=== PATIENT | male | born 1995 | race Caucasian/White ===

== ENCOUNTER 2018-05-22 18:37 | Inpatient (IN) ==
[2018-05-22] MEDS ORDERED: Sod Chloride 0.9% Inj 1,000 ML IV.SIG ONE (19:28)
--- NOTE | 2018-05-22 19:35 | ED ---
HPI General Chief Complaint: Psychiatric Symptoms Stated Complaint: Pysch Eval/EPD Time Seen by Provider: 05/22/18 19:11 Source: patient Mode of arrival: ambulatory Limitations: no limitations History of Present Illness HPI Narrative: 23-year-old male presents the ED under Zaragoza act for psychiatric evaluation. According to the Zaragoza act the patient's mother says that he is suicidal. On presentation the patient denies suicidal or homicidal ideation. He denies psychiatric history. He states that he has been using IV Dilaudid for about a year. He estimates that he uses 4 mg at least 4 or 5 times a week. Last use 2 hours before arrival. He denies other illicit drug use or alcohol use. He is a cigarette smoker. He denies any somatic complaints. He states that he wants to go to rehab. He states that he tried several days to get into [facility] but was unable to procure a bed. Related Data Home Medications Medication Instructions Recorded Confirmed No Known Home Medications 05/22/18 05/22/18 Allergies Allergy/AdvReac Type Severity Reaction Status Date / Time No Known Allergies Uncoded 08/25/08 10:37 Review of Systems ROS: all other systems reviewed are negative [facility] Medical History Medical History Patient denies medical problems (Acute) Surgical History Surgical History No history of previous surgery (Acute) Social History Social History Substance History: Active Abuse Second Hand Smoke Exposure: No Smoking Status: Current every day smoker Tobacco Type: Cigarettes How Often Do You Have a Drink Containing Alcohol: Monthly or less Recent Travel in [email or web address] within the Last 8 Weeks: No Recent Out of Country Travel within the Last 8 Weeks: No Substance Abuse Detail Opiates: Substance Use Status: Active Route Used Substance Abuse: Intravenously Substance Frequency: 4mg-8mg 4-5x per week Reason for Use: Get High Immunization History Tetanus Immunization: Unsure Exam Narrative Exam Narrative: GENERAL: Well-nourished, well-developed, nontoxic-appearing white male no acute distress. SKIN: Focused skin assessment warm/dry. HEAD: Atraumatic. Normocephalic. EYES: Pupils equal and round. No scleral icterus. No injection or drainage. ENT: No nasal bleeding or discharge. Mucous membranes pink and moist. NECK: Trachea midline. No JVD. CARDIOVASCULAR: Regular rate and rhythm. No murmur appreciated. RESPIRATORY: No accessory muscle use. Clear to auscultation. Breath sounds equal bilaterally. GASTROINTESTINAL: Abdomen soft, non-tender, nondistended. Hepatic and splenic margins not palpable. MUSCULOSKELETAL: No obvious deformities. No clubbing. No cyanosis. No edema. NEUROLOGICAL: Awake and alert. No obvious cranial nerve deficits. Motor grossly within normal limits. Normal speech. PSYCHIATRIC: Appropriate mood and affect; insight and judgment normal. Course Initial Documented Vital Signs Temperature 100.6 F H 05/22/18 19:09 Pulse Rate 132 H 05/22/18 19:09 Respiratory Rate 14 05/22/18 19:09 Blood Pressure 159/82 H 05/22/18 19:09 Pulse Oximetry 99 05/22/18 19:09 Last Documented Vital Signs Temperature 98.8 F 05/22/18 21:03 Pulse Rate 125 H 05/22/18 21:03 Respiratory Rate 18 05/22/18 21:03 Blood Pressure 133/70 05/22/18 21:03 Pulse Oximetry 97 05/22/18 21:03 Medical Decision Making MARIPOSA Attestation MARIPOSA supervised visit: Yes Attestation: I, Dr. Cedeño, have reviewed the advance practice practitioner's documentation and am in agreement, met with the patient face to face, made the diagnosis, and the medical decision making was done by me. *My assessment and Findings: Patient is a 23-year-old male who was placed under Zaragoza act as his mother reports that he had suicidal ideation. Patient is a drug addict, reports that he uses IV drugs, last use was a few hours prior to arrival to the emergency room. His mother called miter operator and said he was suicidal to put him under Zaragoza act to get him help for his drug addiction. Patient currently presents tachycardic with a heart rate in the 132, temp of 100.6, wbc 19.4 with left shift. Patient is bacteremic - he has been pancultured and lactate obtained. He will be given IV zosyn and vancomycin. Plan to admit him to the hospital. On physical exam - patient with no heart murmurs appreciated - no back pain. Patient with no complaints. Case reviewed with FP resident - will admit to Dr. Mccabe MDM Narrative Medical Screen Exam Complete: Yes Emergency Medical Condition: Yes Differential Diagnosis Differential Diagnosis: Adjustment disorder versus anxiety versus depression versus mood disorder versus substance-induced mood disorder versus other Lab Data Result diagrams: 05/22/18 19:30 05/22/18 19:30 Lab Results 05/22/18 05/22/18 Range/Units 19:30 19:30 WBC 19.4 H (4.0-11.0) th/mm3 RBC 4.45 L (4.50-5.90) mil/mm3 Hgb 13.8 (13.0-17.0) gm/dL Hct 40.9 (39.0-51.0) % MCV 91.8 (80.0-100.0) fL MCH 30.9 (27.0-34.0) pg MCHC 33.7 (32.0-36.0) % RDW 13.6 (11.6-17.2) % Plt Count 308 (150-450) th/mm3 MPV 7.2 (7.0-11.0) fL Neut % (Auto) 85.1 H (16.0-70.0) % Lymph % (Auto) 8.4 L (9.0-44.0) % Quay % (Auto) 6.1 (0.0-8.0) % Eos % (Auto) 0.2 (0.0-4.0) % Baso % (Auto) 0.2 (0.0-2.0) % Neut # (Auto) 16.5 H (1.8-7.7) th/mm3 Lymph # (Auto) 1.6 (1.0-4.8) th/mm3 Quay # (Auto) 1.2 H (0.0-0.9) th/mm3 Eos # (Auto) 0.0 (0.0-0.4) th/mm3 Baso # (Auto) 0.0 (0.0-0.2) th/mm3 WBC Differential . Differential Comment Auto diff final Sodium 137 (136-145) meq/L Potassium 3.5 (3.5-5.1) meq/L Chloride 104 (98-107) meq/L Carbon Dioxide 25.8 (21.0-32.0) meq/L Anion Gap 7 (5-15) meq/L BUN 12 (7-18) mg/dL Creatinine 1.30 (0.60-1.30) mg/dL Estimated GFR 70 L (>89) mL/min Random Glucose 129 H (74-106) mg/dL Calcium 9.1 (8.5-10.1) mg/dL Magnesium 2.0 (1.5-2.5) mg/dL Total Bilirubin 0.5 (0.2-1.0) mg/dL AST 15 (15-37) U/L ALT 15 (12-78) U/L Alkaline Phosphatase 70 (45-117) U/L Total Protein 8.9 H (6.4-8.2) g/dL Albumin 4.1 (3.4-5.0) g/dL TSH 1.170 (0.358-3.740) uIU/mL Serum Alcohol Less than 3 (0-5) mg/dL Discharge Plan Discharge Disposition Patient Disposition: 30 Still Patient Discharge Condition Condition: Fair Discharge Details Diagnosis: Bacteremia Physicians Team ED Provider: Lisa Cedeño ED Midlevel Provider: Mariela Camacho Primary Care Provider: Primary Care Gi Arzate Rxs /Orders / Referrals /Forms Prescriptions: No Action No Known Home Medications RF: 0 Status ED Status: Pending Admission
[2018-05-22 19:51] LABS: Baso % (Auto) 0.2 % (0.0-2.0); Eos % (Auto) 0.2 % (0.0-4.0); Hematocrit 40.9 % (39.0-51.0); Hemoglobin 13.8 gm/dL (13.0-17.0); Lymph # (Auto) 1.6 th/mm3 (1.0-4.8); Lymph % (Auto) 8.4 % (9.0-44.0); Mean Corpuscular HGB Conc 33.7 % (32.0-36.0); Mean Corpuscular Hemoglobin 30.9 pg (27.0-34.0); Mean Corpuscular Volume 91.8 fL (80.0-100.0); Mean Platelet Volume 7.2 fL (7.0-11.0); Mono # (Auto) 1.2 th/mm3 (0.0-0.9); Mono % (Auto) 6.1 % (0.0-8.0); Neut # (Auto) 16.5 th/mm3 (1.8-7.7); Neut % (Auto) 85.1 % (16.0-70.0); Platelet Count 308 th/mm3 (150-450); Red Blood Count 4.45 mil/mm3 (4.50-5.90); Red Cell Distribution Width 13.6 % (11.6-17.2); White Blood Count 19.4 th/mm3 (4.0-11.0)
[2018-05-22 19:58] LABS: Alanine Aminotransferase 15 U/L (12-78); Albumin 4.1 g/dL (3.4-5.0); Anion Gap 7 meq/L (5-15); Aspartate Aminotransferase 15 U/L (15-37); Blood Urea Nitrogen 12 mg/dL (7-18); Calcium 9.1 mg/dL (8.5-10.1); Carbon Dioxide 25.8 meq/L (21.0-32.0); Chloride 104 meq/L (98-107); Glomerular Filtration Rate 70 mL/min (>89); Glucose,Random 129 mg/dL (74-106); Potassium 3.5 meq/L (3.5-5.1); Sodium 137 meq/L (136-145)
[2018-05-22 20:08] LABS: Alkaline Phosphatase 70 U/L (45-117); Total Protein 8.9 g/dL (6.4-8.2)
[2018-05-22] MEDS ORDERED: Acetaminophen 325 MG Tablet PO ONE (21:13)
[2018-05-22] MEDS ORDERED: Piperacil/Tazo 4.5 GM Premix 4.5 GM/100 ML BAG IV.SIG ONE (21:14)
[2018-05-22] MEDS: Sod Chloride 0.9% Inj 1,000 ML IV.SIG SCH (21:24)
--- NOTE | 2018-05-22 21:54 | P.HPFP ---
History of Present Illness Primary Care Physician: No Primary Care Physician <Anthony Mccabe - 05/24/18 14:26> No Primary Care Physician <Panda Foster - 05/22/18 21:54> History of Present Illness: Patient is a 23-year-old male with past history of opiate addiction who presents today after being Nik acted. The patient reports that he is a chronic opioid addict and tonight his mother attempted to get him help with his opioid addiction by having him Nik acted and sent to the hospital. She reported that he was suicidal at the time as per the ER notes. He states that he has been using IV Dilaudid for approximately 1 year. Over that time he has been able to transition over to Suboxone twice for a couple of months at a time. He typically uses approximately 4-8 mg of Dilaudid per day. He typically uses 5 days/week. He notes that he typically has withdrawal symptoms at approximately 24 hours after his last use. His withdrawal symptoms will include nausea, vomiting, diarrhea, anxiety, shaking. He reports he last used today. He states he typically uses clean needles and will wipe off the needles before using them, however does not sanitize his arm with antiseptic prior to injections. Currently he denies nausea, vomiting, fever, chills, abdominal pain, chest pain, shortness of breath, lightheadedness , dizziness, changes in vision, new lesions on his hands or fingers, painful nodules, new skin lesions other than track aldana on his arms. Patient is currently interested in obtaining help for his opioid addiction. Medical: none Surgery: none Family: Mother: Father: Social EtOH: occasional Tobacco: 1PPd for 3 years Drugs: Dilaudid, Marijuana <Panda Foster - 05/22/18 23:10> - Diagnosis (1) Sepsis (2) Opioid withdrawal (3) Nicotine addiction (4) Nutrition, metabolism, and development symptoms <Pnada Foster - 05/22/18 22:30> (1) Suspected endocarditis (2) Opioid withdrawal (3) Nicotine addiction (4) Nutrition, metabolism, and development symptoms <Anthony Mccabe - 05/24/18 14:26> Inpatient Certification: I certify that the inpatient services were ordered in accordance with Medicare regulations governing the order. This includes certification that hospital inpatient services are reasonable and necessary and in the case of services not specified as inpatient-only under 42 CFR 419.22(n), that they are appropriately provided as inpatient services in accordance to with the 2-midnight benchmark under 43 CFR 412.3(e) <Anthony Mccabe - 05/24/18 14:26> I certify that the inpatient services were ordered in accordance with Medicare regulations governing the order. This includes certification that hospital inpatient services are reasonable and necessary and in the case of services not specified as inpatient-only under 42 CFR 419.22(n), that they are appropriately provided as inpatient services in accordance to with the 2-midnight benchmark under 43 CFR 412.3(e) <Panda Foster - 05/22/18 21:54> Review of Systems All other systems reviewed negative except as stated in HPI <Panda Foster - 05/22/18 23:10> PMFSH - History History Provided By: Patient <Panda Foster - 05/22/18 21:54> - Medical History Medical History: Medical History (Last Reviewed 05/22/18 @ 19:34 by SOLOMON Apodaca) Patient denies medical problems <Anthony Mccabe - 05/24/18 14:23> Medical History (Last Reviewed 05/22/18 @ 19:34 by SOLOMON Apodaca) Patient denies medical problems <Panda Foster - 05/22/18 21:54> - Surgical History Surgical History: Surgical History (Last Reviewed 05/22/18 @ 19:34 by SOLOMON Apodaca) No history of previous surgery <Anthony Mccabe - 05/24/18 14:23> Surgical History (Last Reviewed 05/22/18 @ 19:34 by SOLOMON Apodaca) No history of previous surgery <Panda Foster - 05/22/18 21:54> - Tobacco History Second Hand Smoke Exposure: No <Panda Foster - 05/22/18 21:54> Tobacco Use In Past 30 Days: Yes <Panda Foster 05/22/18 21:54> Smoking Status: Current every day smoker <Panda Foster - 05/22/18 21:54> Tobacco Type: Cigarettes <Panda Foster - 05/22/18 21:54> - Alcohol History How Often Do You Have a Drink Containing Alcohol: Monthly or less <Panda Foster 05/22/18 21:54> - Substance Use History Substance History: Active Abuse <CherylnanyLeif - 05/22/18 21:54> - Substance Use Type Opiates Status: Active <CherylPanda ayon - 05/22/18 21:54> Route Used: Intravenously <CherylnanyLeif - 05/22/18 21:54> Frequency: 4mg-8mg 4-5x per week <Panda Foster - 05/22/18 21:54> Reason for Use: Get High <CherylPanda ayon - 05/22/18 21:54> - Travel History Recent Travel in the [place] Within the Last 8 Weeks: No <Panda Foster - 05/22 21:54> Recent Travel Out of the Country Within the Last 8 Weeks: No <Panda Foster - 05/22/18 21:54> - Immunization History Tetanus Immunization: Unsure <Panda Foster - 05/22/18 21:54> Medications and Allergies Allergies Allergy/AdvReac Type Severity Reaction Status Date / Time No Known Allergies Allergy Verified 05/22/18 22:12 <Anthony Mccabe - 05/24/18 14:26> Home Medications Medication Instructions Recorded Confirmed Type No Known Home Medications 05/22/18 05/22/18 History <Anthony Mccabe - 05/24/18 14:26> Active Medications: Active Medications Acetaminophen (Tylenol) 650 mg PO Q4H PRN PRN Reason: Temp > 100.4 Clonidine HCl (Catapres) 0.1 mg PO Q6H PRN PRN Reason: Opioid Withdrawal Symptoms Last Admin: 05/24/18 13:24 Dose: 0.1 mg Gabapentin (Neurontin) 300 mg PO TID GIL Last Admin: 05/24/18 13:06 Dose: 300 mg Hydroxyzine HCl (Atarax) 50 mg PO Q6H PRN PRN Reason: ANXIETY AND/OR AGITATION Last Admin: 05/24/18 13:24 Dose: 50 mg Piperacillin/Tazobactam/Dextrose (Zosyn 4.5 Gm Premix) 4.5 gm in 100 mls @ 200 mls/hr IV.SIG Q6H GIL Last Infusion: 05/24/18 08:29 Dose: Infused Vancomycin HCl 1,500 mg/ (Sodium Chloride) 515 mls @ 250 mls/hr IV.SIG Q12H GIL Stop: 05/24/18 20:00 Last Admin: 05/24/18 13:06 Dose: 250 mls/hr Vancomycin HCl 1,750 mg/ (Sodium Chloride) 517.5 mls @ 250 mls/hr IV.SIG Q12H GIL Loperamide HCl (Imodium) 2 mg PO UNSCH PRN PRN Reason: DIARRHEA Miscellaneous Information ([facility] Ordered Lab Info) 0 each OTHER ONCE ONE Stop: 05/26/18 12:46 Nicotine (Habitrol 14 Mg Patch.24 Hr) 1 patch T-DERMAL DAILY ON LICENSE OF [facility] Last Admin: 05/24/18 08:00 Dose: 1 patch Nicotine Polacrilex (Nicotine Gum) 4 mg CHEW Q2H PRN PRN Reason: AGITATION Last Admin: 05/23/18 21:21 Dose: 4 mg Ondansetron HCl (Zofran Inj) 4 mg IV.PUSH Q6H PRN PRN Reason: NAUSEA OR VOMITING Patch Removal (Remove Old Patch) 1 each T-DERMAL DAILY ON LICENSE OF [facility] Last Admin: 05/24/18 08:00 Dose: 1 each Pharmacy Profile Note (Vancomycin Consult Pharmacy) 1 each OTHER UNSCH PRN PRN Reason: Pharmacy to dose Sodium Chloride (Ns Flush) 2 ml IV.FLUSH BID ON LICENSE OF [facility] Last Admin: 05/24/18 08:00 Dose: 2 ml Sodium Chloride (Ns Flush) 2 ml IV.FLUSH PRN PRN PRN Reason: FLUSH AFTER USING IV ACCESS <Anthony Mccabe - 05/24/18 14:26> Active Medications Sodium Chloride (Ns Inj) 1,000 mls @ 2,000 mls/hr IV.SIG Q30M ON LICENSE OF [facility] Stop: 05/22/18 22:14 Last Admin: 05/22/18 21:24 Dose: 2,000 mls/hr Vancomycin HCl 1,000 mg/ (Sodium Chloride) 250 mls @ 250 mls/hr IV.SIG GROCERY SHOPPER ON LICENSE OF [facility] Nicotine Polacrilex (Nicotine Gum) 4 mg CHEW Q2H PRN PRN Reason: AGITATION Last Admin: 05/22/18 19:56 Dose: 4 mg <Panda Foster - 05/22/18 21:54> Exam Vital signs: Vital Signs 05/23/18 16:00 05/23/18 20:00 05/24/18 00:00 Temperature 99.1 F 98.9 F 97.8 F Pulse Rate 88 79 82 Respiratory Rate 20 18 18 Blood Pressure 144/71 H 129/69 124/67 Pulse Oximetry 98 98 05/24/18 04:00 05/24/18 07:00 05/24/18 07:43 Temperature 97.4 F L Pulse Rate 82 Respiratory Rate 18 12 12 Blood Pressure 127/63 Pulse Oximetry 127 H 05/24/18 07:48 05/24/18 08:00 05/24/18 11:41 Temperature 98.2 F 99.6 F Pulse Rate 65 61 70 Respiratory Rate 16 20 Blood Pressure 130/70 143/81 H Pulse Oximetry 99 98 Intake & Output 05/23/18 05/24/18 05/24/18 18:59 06:59 18:59 Intake Total 1095 / 1095 815 / 815 100 / 100 Balance 1095 / 1095 815 / 815 100 / 100 Weight 1525 kg 84.1 kg Intake: IV 615 / 615 815 / 815 100 / 100 Zosyn 4.5 GM Premix 4.5 gm In 100 / 100 300 / 300 100 / 100 100 ml @ 200 mls/hr IV.SIG Q6H GIL Rx#:[id number] Vancomycin Inj 1,500 MG In NS 515 / 515 515 / 515 Inj 500 ML @ 250 mls/hr IV.SIG Q12H GIL Rx#:[id number] Oral 480 / 480 Other: # Voids 1 3 Date of Last Bowel Movement 05/22/18 05/22/18 05/24/18 # Bowel Movements 1 <Anthony Mccabe - 05/24/18 14:26> Vital Signs 05/22/18 19:09 05/22/18 21:03 Temperature 100.6 F H 98.8 F Pulse Rate 132 H 125 H Respiratory Rate 14 18 Blood Pressure 159/82 H 133/70 Pulse Oximetry 99 97 Intake & Output 05/22/18 05/22/18 05/23/18 06:59 18:59 06:59 Intake Total 1000 / 1000 Balance 1000 / 1000 Weight 90.718 kg Intake: IV 1000 / 1000 NS Inj 1,000 ML @ Wide Open IV. 1000 / 1000 SIG BOLUS ONE Rx#:[id number] <Panda Foster - 05/22/18 21:54> Narrative: GENERAL: Laying in bed, no acute distress SKIN: Warm and dry. No Osler's nodes, Janeway lesions, splinter hemorrhages. HEAD: Atraumatic. Normocephalic. EYES: Pupils equal and round. No scleral icterus. No injection or drainage. ENT: No nasal bleeding or discharge. Mucous membranes pink and moist. NECK: Trachea midline. No JVD. CARDIOVASCULAR: Regular rate and rhythm. No murmurs/gallops/rubs. RESPIRATORY: No accessory muscle use. Clear to auscultation. Breath sounds equal bilaterally. GASTROINTESTINAL: Abdomen soft, non-tender, nondistended. Hepatic and splenic margins not palpable. MUSCULOSKELETAL: Extremities without clubbing, cyanosis, or edema. No obvious deformities. NEUROLOGICAL: Awake and alert. No obvious cranial nerve deficits. Motor grossly within normal limits. Five out of 5 muscle strength in the arms and legs. Normal speech. PSYCHIATRIC: Appropriate mood and affect; insight and judgment normal. Patient currently denies SI/HI. Patient denies AV hallucinations. <Panda Foster A - 05/22/18 23:10> Results - Labs Result diagrams: 05/24/18 07:01 05/24/18 13:12 <Anthony Mccabe - 05/24/18 14:26> Abnormal lab results 05/24/18 05/24/18 Range/Units 07:01 13:12 RBC 4.15 L (4.50-5.90) mil/mm3 Hct 38.0 L (39.0-51.0) % [place] % (Auto) 11.8 H (0.0-8.0) % [place] # (Auto) 1.2 H (0.0-0.9) th/mm3 Chloride 113 H (98-107) meq/L Estimated GFR 78 L (>89) mL/min C-Reactive Protein 1.30 H (0.00-0.30) mg/dL Vancomycin Trough 12.4 H (5.0-10.0) mcg/mL Short CBC 05/24/18 Range/Units 07:01 WBC 9.9 (4.0-11.0) th/mm3 Hgb 13.0 (13.0-17.0) gm/dL Hct 38.0 L (39.0-51.0) % Plt Count 289 (150-450) th/mm3 [facility] 05/24/18 13:12 Sodium 142 Potassium 3.5 Chloride 113 H Carbon Dioxide 22.5 BUN 8 Creatinine 1.18 Calcium 9.0 D <Anthony Mccabe - 05/24/18 14:26> Abnormal lab results 05/22/18 05/22/18 Range/Units 19:30 19:30 WBC 19.4 H (4.0-11.0) th/mm3 RBC 4.45 L (4.50-5.90) mil/mm3 Neut % (Auto) 85.1 H (16.0-70.0) % Lymph % (Auto) 8.4 L (9.0-44.0) % Neut # (Auto) 16.5 H (1.8-7.7) th/mm3 [place] # (Auto) 1.2 H (0.0-0.9) th/mm3 Estimated GFR 70 L (>89) mL/min Random Glucose 129 H (74-106) mg/dL Total Protein 8.9 H (6.4-8.2) g/dL Short CBC 05/22/18 Range/Units 19:30 WBC 19.4 H (4.0-11.0) th/mm3 Hgb 13.8 (13.0-17.0) gm/dL Hct 40.9 (39.0-51.0) % Plt Count 308 (150-450) th/mm3 [facility] 05/22/18 19:30 Sodium 137 Potassium 3.5 Chloride 104 Carbon Dioxide 25.8 BUN 12 Creatinine 1.30 Calcium 9.1 Liver Function 05/22/18 Range/Units 19:30 Total Bilirubin 0.5 (0.2-1.0) mg/dL AST 15 (15-37) U/L ALT 15 (12-78) U/L Alkaline Phosphatase 70 (45-117) U/L Albumin 4.1 (3.4-5.0) g/dL <Panda Foster - 05/22/18 21:54> Aster VTE Risk Assessment Aster VTE Risk Assessment: No/Low Risk (score <= 1) <Panda Foster - 07/09 23:10> Aster Risk Assessment Model: Point Value = 1 Point Value = 2 Point Value = 3 Point Value = 5 Age 41-60 Minor surgery BMI > 25 kg/m2 Swollen legs Varicose veins or History of unexplained or recurrent spontaneous Oral contraceptives or hormone replacement Sepsis (< 1 month) Serious lung disease, including pneumonia (< 1 month) Abnormal pulmonary function Acute myocardial infarction Congestive heart failure (< 1 month) History of inflammatory bowel disease Medical patient at bed rest Age 61-74 Arthroscopic surgery Major open surgery (> 45 min) Laparoscopic surgery (> 45 min) Malignancy Confined to bed (> 72 hours) Immobilizing plaster cast Central venous access Age >= 75 History of VTE Family history of VTE Factor V Leiden Prothrombin [id number] Lupus anticoagulant Anticardiolipin antibodies Elevated serum homocysteine Heparin-induced thrombocytopenia Other congenital or acquired thrombophilia Stroke (< 1 month) Elective arthroplasty Hip, pelvis, or leg fracture Acute spinal cord injury (< 1 month) <Anthony Mccabe - 05/24/18 14:26> Point Value = 1 Point Value = 2 Point Value = 3 Point Value = 5 Age 41-60 Minor surgery BMI > 25 kg/m2 Swollen legs Varicose veins or History of unexplained or recurrent spontaneous Oral contraceptives or hormone replacement Sepsis (< 1 month) Serious lung disease, including pneumonia (< 1 month) Abnormal pulmonary function Acute myocardial infarction Congestive heart failure (< 1 month) History of inflammatory bowel disease Medical patient at bed rest Age 61-74 Arthroscopic surgery Major open surgery (> 45 min) Laparoscopic surgery (> 45 min) Malignancy Confined to bed (> 72 hours) Immobilizing plaster cast Central venous access Age >= 75 History of VTE Family history of VTE Factor V Leiden Prothrombin [id number] Lupus anticoagulant Anticardiolipin antibodies Elevated serum homocysteine Heparin-induced thrombocytopenia Other congenital or acquired thrombophilia Stroke (< 1 month) Elective arthroplasty Hip, pelvis, or leg fracture Acute spinal cord injury (< 1 month) <Panda Foster - 05/22/18 21:54> Prophylaxis Regimen: Total Risk Factor Score Risk Level Prophylaxis Regimen 0-1 Low Early ambulation 2 Moderate Order ONE of the following: *Sequential Compression Device (SCD) *Heparin 5000 units SQ BID 3-4 Higher Order ONE of the following medications: *Heparin 5000 units SQ TID *Enoxaparin/Lovenox 40 mg SQ daily (WT < 150 kg, CrCl > 30 mL/min) *Enoxaparin/Lovenox 30 mg SQ daily (WT < 150 kg, CrCl > 10-29 mL/min) *Enoxaparin/Lovenox 30 mg SQ BID (WT < 150 kg, CrCl > 30 mL/min) AND/OR *Sequential Compression Device (SCD) 5 or more Highest Order ONE of the following medications: *Heparin 5000 units SQ TID (Preferred with Epidurals) *Enoxaparin/Lovenox 40 mg SQ daily (WT < 150 kg, CrCl > 30 mL/min) *Enoxaparin/Lovenox 30 mg SQ daily (WT < 150 kg, CrCl > 10-29 mL/min) *Enoxaparin/Lovenox 30 mg SQ BID (WT < 150 kg, CrCl > 30 mL/min) AND *Sequential Compression Device (SCD) <Anthony Mccabe - 05/24/18 14:26> Total Risk Factor Score Risk Level Prophylaxis Regimen 0-1 Low Early ambulation 2 Moderate Order ONE of the following: *Sequential Compression Device (SCD) *Heparin 5000 units SQ BID 3-4 Higher Order ONE of the following medications: *Heparin 5000 units SQ TID *Enoxaparin/Lovenox 40 mg SQ daily (WT < 150 kg, CrCl > 30 mL/min) *Enoxaparin/Lovenox 30 mg SQ daily (WT < 150 kg, CrCl > 10-29 mL/min) *Enoxaparin/Lovenox 30 mg SQ BID (WT < 150 kg, CrCl > 30 mL/min) AND/OR *Sequential Compression Device (SCD) 5 or more Highest Order ONE of the following medications: *Heparin 5000 units SQ TID (Preferred with Epidurals) *Enoxaparin/Lovenox 40 mg SQ daily (WT < 150 kg, CrCl > 30 mL/min) *Enoxaparin/Lovenox 30 mg SQ daily (WT < 150 kg, CrCl > 10-29 mL/min) *Enoxaparin/Lovenox 30 mg SQ BID (WT < 150 kg, CrCl > 30 mL/min) AND *Sequential Compression Device (SCD) <Panda Foster - 05/22/18 21:54> Assessment and Plan - Assessment (1) Sepsis Code(s): A41.9 - Sepsis, unspecified organism Status: Acute Plan: Patient with chronic and recent IV drug use. Meets criteria for sepsis. Currently with 2 minor Gaviria criteria, IVDU and fever. Need to evaluate further for bacterial endocarditis. -Follow-up blood cultures -Zosyn 4.5 g every 6 hours -Vancomycin 1.5 g every 12 hours, titrate as needed for appropriate concentration -Follow-up with OSWALD (2) Opioid withdrawal Code(s): F11.23 - Opioid dependence with withdrawal Status: Acute Plan: Chronic IV Dilaudid user, typically uses 4-8 mg/day. -Clonidine 0.1 mg every 6 hours as needed for opioid withdrawal symptoms -Hydroxyzine 50 mg every 6 hours as needed for anxiety related to opioid withdrawal (3) Nicotine addiction Code(s): F17.200 - Nicotine dependence, unspecified, uncomplicated Status: Acute Plan: Nicotine addiction. -Nicotine patch (4) Nutrition, metabolism, and development symptoms Code(s): R63.8 - Other symptoms and signs concerning food and fluid intake Status: Acute Plan: Diet: Regular Electrolytes: Monitor and replete as needed <Panda Foster - 05/22/18 22:30> (1) Suspected endocarditis Code(s): R09.89 - Other specified symptoms and signs involving the circulatory and respiratory systems Status: Acute (2) Opioid withdrawal Code(s): F11.23 - Opioid dependence with withdrawal Status: Acute (3) Nicotine addiction Code(s): F17.200 - Nicotine dependence, unspecified, uncomplicated Status: Acute (4) Nutrition, metabolism, and development symptoms Code(s): R63.8 - Other symptoms and signs concerning food and fluid intake Status: Acute <Anthony Mccabe - 05/24/18 14:26> - Attending Attestation See the residents documentation for details. I saw and evaluated the patient regarding the kang portions of this evaluation and agree with the residents findings and plans as written. Parts of this note were created using [employer] voice recognition software program. While efforts were made to correct any mistakes made by this software, some mistakes, errors, and omissions may remain in the final note that were not caught when the note was originally created. Plan of care was discussed and agreed upon with the patient as specifically documented in the above note. An opportunity to ask questions with explanation was provided. Patient voiced understanding on all information reviewed and discussed. <Anthony Mccabe - 05/24/18 14:23>
[2018-05-22] MEDS ORDERED: Vancomycin Inj 1,000 MG in Sodium Chlor 0.9% Inj 250 ML IV.SIG SCH (22:00)
[2018-05-22] MEDS ORDERED: Acetaminophen 325 MG Tablet PO PRN (22:09)
[2018-05-22 22:11] LABS: Amphetamine Screen,Urine Neg (Neg); Barbiturate Screen,Urine Neg (Neg); Cannabinoid Screen,Urine Neg (Neg); Cocaine Screen,Urine Pos (Neg)
[2018-05-22 22:48] LABS: Opiate Screen,Urine Pos (Neg)
[2018-05-22] MEDS ORDERED: Vancomycin Consult Pharmacy OTHER PRN (23:09)
[2018-05-22] MEDS ORDERED: Vancomycin Inj 1,000 MG in Sodium Chlor 0.9% Inj 250 ML IV.SIG ONE (23:30)
[2018-05-23 01:24] LABS: Baso % (Auto) 0.3 % (0.0-2.0); Eos # (Auto) 0.1 th/mm3 (0.0-0.4); Eos % (Auto) 1.2 % (0.0-4.0); Hematocrit 36.4 % (39.0-51.0); Hemoglobin 12.4 gm/dL (13.0-17.0); Lymph # (Auto) 2.9 th/mm3 (1.0-4.8); Lymph % (Auto) 27.3 % (9.0-44.0); Mean Corpuscular HGB Conc 34.1 % (32.0-36.0); Mono % (Auto) 9.7 % (0.0-8.0); Neut # (Auto) 6.4 th/mm3 (1.8-7.7); Neut % (Auto) 61.5 % (16.0-70.0); Platelet Count 244 th/mm3 (150-450); Red Cell Distribution Width 13.5 % (11.6-17.2); White Blood Count 10.5 th/mm3 (4.0-11.0)
[2018-05-23] MEDS: Sod Chloride 0.9% Inj 1,000 ML IV.SIG SCH (01:28)
[2018-05-23 02:01] LABS: Alanine Aminotransferase 13 U/L (12-78); Albumin 3.3 g/dL (3.4-5.0); Alkaline Phosphatase 56 U/L (45-117); Anion Gap 5 meq/L (5-15); Aspartate Aminotransferase 9 U/L (15-37); Blood Urea Nitrogen 11 mg/dL (7-18); Calcium 7.9 mg/dL (8.5-10.1); Carbon Dioxide 27.6 meq/L (21.0-32.0); Chloride 108 meq/L (98-107); Glomerular Filtration Rate Greater Than 89 mL/min (>89); Glucose,Random 101 mg/dL (74-106); Potassium 3.5 meq/L (3.5-5.1); Sodium 141 meq/L (136-145); Total Protein 7.2 g/dL (6.4-8.2)
[2018-05-23] MEDS: Piperacil/Tazo 4.5 GM Premix 4.5 GM/100 ML BAG IV.SIG SCH ×4 (03:05→21:21)
[2018-05-23] MEDS ORDERED: Loperamide 2 MG Capsule PO PRN (08:32)
[2018-05-23] MEDS ORDERED: Loperamide 2 MG Capsule PO ONE (08:32)
[2018-05-23] MEDS ORDERED: Vancomycin Inj 1,500 MG in Sodium Chlor 0.9% Inj 500 ML IV.SIG SCH (10:00)
--- NOTE | 2018-05-23 11:48 | P.PNFP ---
Subjective Interval history: Pt is doing okay this morning. He denies SI/HI and states that he was in the process of detoxing when he slipped and took some IV Dilaudid. he denies using any other drugs. No fever or chills, nausea, or vomiting at this time. <EkoAna María U - 05/23/18 11:54> Results - Labs Result diagrams: 05/24/18 07:01 05/24/18 13:12 <Anthony Mccabe - 05/24/18 14:50> Abnormal lab results 05/24/18 05/24/18 Range/Units 07:01 13:12 RBC 4.15 L (4.50-5.90) mil/mm3 Hct 38.0 L (39.0-51.0) % [place] % (Auto) 11.8 H (0.0-8.0) % [place] # (Auto) 1.2 H (0.0-0.9) th/mm3 Chloride 113 H (98-107) meq/L Estimated GFR 78 L (>89) mL/min C-Reactive Protein 1.30 H (0.00-0.30) mg/dL Vancomycin Trough 12.4 H (5.0-10.0) mcg/mL Short CBC 05/24/18 Range/Units 07:01 WBC 9.9 (4.0-11.0) th/mm3 Hgb 13.0 (13.0-17.0) gm/dL Hct 38.0 L (39.0-51.0) % Plt Count 289 (150-450) th/mm3 BMP 05/24/18 13:12 Sodium 142 Potassium 3.5 Chloride 113 H Carbon Dioxide 22.5 BUN 8 Creatinine 1.18 Calcium 9.0 D <Anthony Mccabe - 05/24/18 14:50> Abnormal lab results 05/22/18 05/22/18 05/22/18 Range/Units 19:30 19:30 19:30 WBC 19.4 H (4.0-11.0) th/mm3 RBC 4.45 L (4.50-5.90) mil/mm3 Hgb (13.0-17.0) gm/dL Hct (39.0-51.0) % Neut % (Auto) 85.1 H (16.0-70.0) % Lymph % (Auto) 8.4 L (9.0-44.0) % [place] % (Auto) (0.0-8.0) % Neut # (Auto) 16.5 H (1.8-7.7) th/mm3 [place] # (Auto) 1.2 H (0.0-0.9) th/mm3 Chloride (98-107) meq/L Estimated GFR 70 L (>89) mL/min Random Glucose 129 H (74-106) mg/dL Calcium (8.5-10.1) mg/dL AST (15-37) U/L Troponin I Less than 0.02 L (0.02-0.05) ng/mL Total Protein 8.9 H (6.4-8.2) g/dL Albumin (3.4-5.0) g/dL Urine Opiates Screen (Neg) Urine Cocaine Screen (Neg) 05/22/18 05/23/18 05/23/18 Range/Units 21:51 01:13 01:13 WBC (4.0-11.0) th/mm3 RBC 4.00 L (4.50-5.90) mil/mm3 Hgb 12.4 L (13.0-17.0) gm/dL Hct 36.4 L (39.0-51.0) % Neut % (Auto) (16.0-70.0) % Lymph % (Auto) (9.0-44.0) % [place] % (Auto) 9.7 H (0.0-8.0) % Neut # (Auto) (1.8-7.7) th/mm3 [place] # (Auto) 1.0 H (0.0-0.9) th/mm3 Chloride 108 H (98-107) meq/L Estimated GFR (>89) mL/min Random Glucose (74-106) mg/dL Calcium 7.9 L D (8.5-10.1) mg/dL AST 9 L (15-37) U/L Troponin I (0.02-0.05) ng/mL Total Protein (6.4-8.2) g/dL Albumin 3.3 L D (3.4-5.0) g/dL Urine Opiates Screen Pos H (Neg) Urine Cocaine Screen Pos H (Neg) Short CBC 05/22/18 05/23/18 Range/Units 19:30 01:13 WBC 19.4 H 10.5 (4.0-11.0) th/mm3 Hgb 13.8 12.4 L (13.0-17.0) gm/dL Hct 40.9 36.4 L (39.0-51.0) % Plt Count 308 244 (150-450) th/mm3 BMP 05/22/18 05/23/18 19:30 01:13 Sodium 137 141 Potassium 3.5 3.5 Chloride 104 108 H Carbon Dioxide 25.8 27.6 BUN 12 11 Creatinine 1.30 1.01 Calcium 9.1 7.9 L D Cardiac Enzymes 05/22/18 Range/Units 19:30 Troponin I Less than 0.02 L (0.02-0.05) ng/mL Liver Function 05/22/18 05/23/18 Range/Units 19:30 01:13 Total Bilirubin 0.5 0.8 (0.2-1.0) mg/dL AST 15 9 L (15-37) U/L ALT 15 13 (12-78) U/L Alkaline Phosphatase 70 56 (45-117) U/L Albumin 4.1 3.3 L D (3.4-5.0) g/dL <Eko,Ana María U - 05/23/18 11:48> Physical Exam Vital signs: Vital Signs 05/23/18 16:00 05/23/18 20:00 05/24/18 00:00 Temperature 99.1 F 98.9 F 97.8 F Pulse Rate 88 79 82 Respiratory Rate 20 18 18 Blood Pressure 144/71 H 129/69 124/67 Pulse Oximetry 98 98 05/24/18 04:00 05/24/18 07:00 05/24/18 07:43 Temperature 97.4 F L Pulse Rate 82 Respiratory Rate 18 12 12 Blood Pressure 127/63 Pulse Oximetry 127 H 05/24/18 07:48 05/24/18 08:00 05/24/18 11:41 Temperature 98.2 F 99.6 F Pulse Rate 65 61 70 Respiratory Rate 16 20 Blood Pressure 130/70 143/81 H Pulse Oximetry 99 98 Intake & Output 05/23/18 05/24/18 05/24/18 18:59 06:59 18:59 Intake Total 1095 / 1095 815 / 815 100 / 100 Balance 1095 / 1095 815 / 815 100 / 100 Weight 1525 kg 84.1 kg Intake: IV 615 / 615 815 / 815 100 / 100 Zosyn 4.5 GM Premix 4.5 gm In 100 / 100 300 / 300 100 / 100 100 ml @ 200 mls/hr IV.SIG Q6H [facility] Rx#:[id number] Vancomycin Inj 1,500 MG In NS 515 / 515 515 / 515 Inj 500 ML @ 250 mls/hr IV.SIG Q12H [facility] Rx#:[id number] Oral 480 / 480 Other: # Voids 1 3 Date of Last Bowel Movement 05/22/18 05/22/18 05/24/18 # Bowel Movements 1 <Anthony Mccabe - 05/24/18 14:50> Vital Signs 05/22/18 19:09 05/22/18 21:03 05/22/18 22:00 Temperature 100.6 F H 98.8 F Pulse Rate 132 H 125 H 120 H Respiratory Rate 14 18 16 Blood Pressure 159/82 H 133/70 122/77 Pulse Oximetry 99 97 100 05/23/18 00:00 05/23/18 04:00 05/23/18 07:50 Temperature 98.4 F 97.7 F 97.4 F L Pulse Rate 120 H 78 80 Respiratory Rate 20 20 15 Blood Pressure 135/84 123/60 116/61 Pulse Oximetry 100 100 100 Intake & Output 05/22/18 05/23/18 05/23/18 18:59 06:59 18:59 Intake Total 3940 / 3940 Balance 3940 / 3940 Weight 91.2 kg Intake: IV 3700 / 3700 Zosyn 4.5 GM Premix 4.5 gm In 200 / 200 100 ml @ 200 mls/hr IV.SIG Q6H [facility] Rx#:[id number] NS Inj 1,000 ML @ 2000 mls/hr 3000 / 3000 IV.SIG Q30M [facility] Rx#:[id number] Vancomycin Inj 1,000 MG In NS 500 / 500 Inj 250 ML @ 250 mls/hr IV.SIG ONCE ONE Rx#:[id number] Oral 240 / 240 Other: # Voids 1 <Ana María Puentes U - 05/23/18 11:48> Narrative: GENERAL: Laying in bed, no acute distress SKIN: Warm and dry. No Osler's nodes, Janeway lesions, splinter hemorrhages. HEAD: Atraumatic. Normocephalic. EYES: Pupils equal and round. No scleral icterus. No injection or drainage. ENT: No nasal bleeding or discharge. Mucous membranes pink and moist. CARDIOVASCULAR: Regular rate and rhythm. No murmurs/gallops/rubs. RESPIRATORY: No accessory muscle use. Clear to auscultation. Breath sounds equal bilaterally. GASTROINTESTINAL: Abdomen soft, non-tender, nondistended. Hepatic and splenic margins not palpable. MUSCULOSKELETAL: Extremities without clubbing, cyanosis, or edema. No obvious deformities. NEUROLOGICAL: Awake and alert. No obvious cranial nerve deficits. Motor grossly within normal limits. Normal speech. PSYCHIATRIC: Appropriate mood and affect; insight and judgment normal. Patient currently denies SI/HI. <Ana María Puentes - 05/23/18 11:55> Assessment and Plan - Assessment (1) Suspected endocarditis Code(s): R09.89 - Other specified symptoms and signs involving the circulatory and respiratory systems Status: Acute (2) Opioid withdrawal Code(s): F11.23 - Opioid dependence with withdrawal Status: Acute (3) Nicotine addiction Code(s): F17.200 - Nicotine dependence, unspecified, uncomplicated Status: Acute (4) Nutrition, metabolism, and development symptoms Code(s): R63.8 - Other symptoms and signs concerning food and fluid intake Status: Acute <MccabeAnthony - 05/24/18 14:50> (1) Suspected endocarditis Code(s): R09.89 - Other specified symptoms and signs involving the circulatory and respiratory systems Status: Acute Plan: Patient with chronic and recent IV drug use. Met criteria for sepsis on admission with 2 minor Gaviria criteria, IVDU and fever which requires further evaluation for bacterial endocarditis. -WBC elevated to 19.4 on admission; down to 10.5 today -UDS positive for cocaine and opioids -Follow-up blood cultures -Zosyn 4.5 g every 6 hours -Vancomycin 1.5 g every 12 hours with pharmacy consult -Follow-up OSWALD (2) Opioid withdrawal Code(s): F11.23 - Opioid dependence with withdrawal Status: Acute Plan: Chronic IV Dilaudid user, typically uses 4-8 mg/day. -Patient is currently Zaragoza-acted but denies suicidal ideation -Pending psychiatry consultation -He may need inpatient rehab -Clonidine 0.1 mg every 6 hours as needed for opioid withdrawal symptoms -Hydroxyzine 50 mg every 6 hours as needed for anxiety related to opioid withdrawal -Loperamide 2mg unscheduled for diarrhea -Consider methadone for opioid withdrawal -HIV negative, hepatitis panel pending (3) Nicotine addiction Code(s): F17.200 - Nicotine dependence, unspecified, uncomplicated Status: Acute Plan: Nicotine addiction. -Nicotine patch (4) Nutrition, metabolism, and development symptoms Code(s): R63.8 - Other symptoms and signs concerning food and fluid intake Status: Acute Plan: Diet: Regular Electrolytes: Monitor and replete as needed <Ana María Puentes - 05/23/18 12:04> - Attending Attestation See the residents documentation for details. I saw and evaluated the patient regarding the kang portions of this evaluation and agree with the residents findings and plans as written. Parts of this note were created using [employer] voice recognition software program. While efforts were made to correct any mistakes made by this software, some mistakes, errors, and omissions may remain in the final note that were not caught when the note was originally created. Plan of care was discussed and agreed upon with the patient as specifically documented in the above note. An opportunity to ask questions with explanation was provided. Patient voiced understanding on all information reviewed and discussed. <Anthony Mccabe - 05/24/18 14:50>
[2018-05-23 12:29] LABS: Hepatitits B Surface Antigen Nonreactive (Nonreactive)
[2018-05-23 12:45] LABS: Hepatitis A IgM Antibody Nonreactive (Nonreactive)
--- NOTE | 2018-05-23 13:01 | ECG ---
Date Performed: 05/22/2018 Time Performed: 21:25:49 PTAGE: 23 years EKG: SINUS TACHYCARDIA ST ELEVATION CONSISTENT WITH INJURY, PERICARDITIS, OR EARLY REPOLARIZATIO N ABNORMAL ECG NO PREVIOUS TRACING DOCTOR: Donis Ventura Interpretating Date/Time 05/23/2018 12:58:42
[2018-05-23] MEDS: Vancomycin Inj 1,500 MG in Sodium Chlor 0.9% Inj 500 ML IV.SIG SCH (14:24)
--- NOTE | 2018-05-23 15:03 | P.CONPSY ---
Provisional Diagnosis Admission Date: May 22, 2018 21:38 History of Present Illness Service: psychiatry Consult date: 05/23/18 Reason for Consult: ROBERTA Primary Care Provider: No Primary Care Physician Chief Complaint: SI History of Present Illness: Patient is a 23-year-old male with a history of depressive disorder and severe opiate abuse. Patient interviewed with mother and girlfriend in the room. Patient is here Via Zaragoza act after daily use of IV Dilaudid. Per Zaragoza act patient made suicidal statements. Patient vehemently denies making statements or having suicidal ideation intent or plan. However per mother and girlfriend patient was under the influence and specifically said that he no longer wants to live and wishes he were . Patient is pleasant but evasive and guarded during the interview. Mother has started a act process and is following up on Thursday with the tank builder supervisor. At this time patient denies depressive symptoms, manic symptoms or psychotic symptoms. He does deny suicidal homicidal ideation intent or plan at this time. Patient is asking for Ativan for anxiety which is not appropriate, psychoeducation was done Past psych: Patient initially denied psychiatric history but mother says he was prescribed Lexapro when he was 19 and never complied with medications. Otherwise he denies a history of other psychotropic medications, outpatient or inpatient or suicide attempts. Past medical: Denies Past Social: Patient has been using IV Dilaudid heavily between 4 and 8 mg daily over the past year. He has been clean for as long as 8 weeks. There is no history of formal rehab programs. Patient says he started about a year and a half ago partying with friends using pain pills and benzodiazepines eventually progressed to IV Dilaudid. Patient says he would use other IV opiates if there were available such as heroin and morphine. He has a girlfriend. Not , no kids. Lives with his mom, was working in the restaurant industry. [facility] - History History Provided By: Patient - Medical History Medical History: Medical History (Last Reviewed 05/22/18 @ 19:34 by SOLOMON Apodaca) Patient denies medical problems - Surgical History Surgical History: Surgical History (Last Reviewed 05/22/18 @ 19:34 by SOLOMON Apodaca) No history of previous surgery - Tobacco History Second Hand Smoke Exposure: No Tobacco Use In Past 30 Days: Yes Smoking Status: Current every day smoker Tobacco Type: Cigarettes - Alcohol History How Often Do You Have a Drink Containing Alcohol: Monthly or less - Substance Use History Substance History: Active Abuse - Substance Use Type Opiates Status: Active Route Used: Intravenously Frequency: 4mg-8mg 4-5x per week Reason for Use: Get High - Travel History Recent Travel in the [place] Within the Last 8 Weeks: No Recent Travel Out of the Country Within the Last 8 Weeks: No - Immunization History Tetanus Immunization: >5 Years Hx Influenza Vaccine This Season: No Medications and Allergies Active Medications: Active Medications Acetaminophen (Tylenol) 650 mg PO Q4H PRN PRN Reason: Temp > 100.4 Clonidine HCl (Catapres) 0.1 mg PO Q6H PRN PRN Reason: Opioid Withdrawal Symptoms Hydroxyzine HCl (Atarax) 50 mg PO Q6H PRN PRN Reason: ANXIETY AND/OR AGITATION Last Admin: 05/23/18 12:55 Dose: 50 mg Piperacillin/Tazobactam/Dextrose (Zosyn 4.5 Gm Premix) 4.5 gm in 100 mls @ 200 mls/hr IV.SIG Q6H [facility] Last Infusion: 05/23/18 12:55 Dose: Infused Vancomycin HCl 1,500 mg/ (Sodium Chloride) 515 mls @ 250 mls/hr IV.SIG Q12H [facility] Last Admin: 05/23/18 14:24 Dose: 250 mls/hr Loperamide HCl (Imodium) 2 mg PO UNSCH PRN PRN Reason: DIARRHEA Miscellaneous Information ([facility] Ordered Lab Info) 0 each OTHER ONCE ONE Stop: 05/24/18 12:46 Nicotine (Habitrol 14 Mg Patch.24 Hr) 1 patch T-DERMAL DAILY [facility] Last Admin: 05/23/18 11:08 Dose: 1 patch Nicotine Polacrilex (Nicotine Gum) 4 mg CHEW Q2H PRN PRN Reason: AGITATION Last Admin: 05/22/18 22:07 Dose: 4 mg Ondansetron HCl (Zofran Inj) 4 mg IV.PUSH Q6H PRN PRN Reason: NAUSEA OR VOMITING Patch Removal (Remove Old Patch) 1 each T-DERMAL DAILY [facility] Last Admin: 05/23/18 11:08 Dose: 1 each Pharmacy Profile Note (Vancomycin Consult Pharmacy) 1 each OTHER UNSCH PRN PRN Reason: Pharmacy to dose Sodium Chloride (Ns Flush) 2 ml IV.FLUSH BID [facility] Last Admin: 05/23/18 11:09 Dose: 2 ml Sodium Chloride (Ns Flush) 2 ml IV.FLUSH PRN PRN PRN Reason: FLUSH AFTER USING IV ACCESS Allergies Allergy/AdvReac Type Severity Reaction Status Date / Time No Known Allergies Allergy Verified 05/22/18 22:12 Home Medications Medication Instructions Recorded Confirmed Type No Known Home Medications 05/22/18 05/22/18 History Exam Vital signs: Vital Signs 05/22/18 19:09 05/22/18 21:03 05/22/18 22:00 Temperature 100.6 F H 98.8 F Pulse Rate 132 H 125 H 120 H Respiratory Rate 14 18 16 Blood Pressure 159/82 H 133/70 122/77 Pulse Oximetry 99 97 100 05/23/18 00:00 05/23/18 04:00 05/23/18 07:50 Temperature 98.4 F 97.7 F 97.4 F L Pulse Rate 120 H 78 80 Respiratory Rate 20 20 15 Blood Pressure 135/84 123/60 116/61 Pulse Oximetry 100 100 100 05/23/18 12:00 Temperature 97.6 F Pulse Rate 84 Respiratory Rate 20 Blood Pressure 125/69 Pulse Oximetry 100 Intake & Output 05/22/18 05/23/18 05/23/18 18:59 06:59 18:59 Intake Total 3940 / 3940 100 / 100 Balance 3940 / 3940 100 / 100 Weight 91.2 kg Intake: IV 3700 / 3700 100 / 100 Zosyn 4.5 GM Premix 4.5 gm In 200 / 200 100 / 100 100 ml @ 200 mls/hr IV.SIG Q6H [facility] Rx#:[id number] NS Inj 1,000 ML @ 2000 mls/hr 3000 / 3000 IV.SIG Q30M [facility] Rx#:[id number] Vancomycin Inj 1,000 MG In NS 500 / 500 Inj 250 ML @ 250 mls/hr IV.SIG ONCE ONE Rx#:[id number] Oral 240 / 240 Other: # Voids 1 Mental Status Examination Appearance: Appropriate Consciousness: Alert Orientation: x4 Motor Activity: Normal gait Speech: Hesitant, Slow Language: Adequate Fund of Knowledge: Adequate Attention and Concentration: Adequate Memory: Impaired Mood: Appropriate Affect: Anxious Thought Content: Appropriate Hallucination Type: None Delusion Type: None Suicidal Ideation: Yes (Denies but is a poor historian) Suicidal Plan: No Suicidal Intention: No Homicidal Ideation: No Homicidal Plan: No Homicidal Intention: No Insight: Poor Judgment: Poor Assessment and Plan - Assessment (1) Adjustment disorder with mixed disturbance of emotions and conduct Code(s): F43.25 - Adjustment disorder with mixed disturbance of emotions and conduct Status: Acute (2) Opioid withdrawal Code(s): F11.23 - Opioid dependence with withdrawal Status: Acute (3) Opioid use disorder, severe, dependence Code(s): F11.20 - Opioid dependence, uncomplicated Status: Acute - Plan Plan: I recommend transfer to the psychiatric unit once she is medically cleared. There is enough evidence from collateral sources to indicate he has suicidal ideation while he is high. He should proceed to the [facility] treating center once that is established. I recommend Neurontin 300 mg 3 times daily and further titration as needed for anxiety. Justification for Continued Inpatient Stay: Patient would decompensate in a less restrictive setting
--- NOTE | 2018-05-23 15:12 | MB ---
cc: Rory Mcclellan DO DATE: 05/23/2018 REASON FOR CONSULTATION: Consideration of OSWALD. HISTORY OF PRESENT ILLNESS: Neo Saldaña is a pleasant 23-year-old male who presented to [facility] as a Zaragoza Act. He has chronic opioid addiction and he was trying to wean himself off using Dilaudid daily. He uses approximately 48 mg of Dilaudid per day. He was attempting to stop and during that time, he had some fevers and chills, but sounds like he was going through a withdrawal. He finally used a small amount more to try to get rid of his withdrawal and came into the emergency room. He admits to using IV drugs and claims to use clean needles. Currently, he denies any nausea, vomiting, fevers or chills. PAST MEDICAL HISTORY: 1. IV drug abuse with Dilaudid. 2. Tobacco abuse. PAST SURGICAL HISTORY: Denies. ALLERGIES: NO KNOWN DRUG ALLERGIES. MEDICATIONS: Denies. FAMILY HISTORY: Denies any sudden cardiac or premature coronary artery disease within the family. SOCIAL HISTORY: The patient admits to using IV Dilaudid almost daily with 4-8 mg. He uses marijuana occasionally. He smokes 1 pack a day for 3 years. Occasionally drinks alcohol. REVIEW OF SYSTEMS: Fourteen systems were reviewed including osteopathic. Pertinent positives and negatives above, otherwise negative. PHYSICAL EXAMINATION: VITAL SIGNS: Temperature 97.6, heart rate 84, blood pressure 125/69, respirations 20, pulse oximetry 100% on room air. GENERAL: The patient appears well, no acute distress. Alert, awake and oriented x3. HEENT: Extraocular muscles intact. Mucous membranes moist. NECK: Supple. No JVD at 45 degrees. No carotid bruits noted bilaterally. Carotid upstroke is brisk in nature. HEART: Regular rate and rhythm. Positive first and second heart sounds with no noted murmurs, gallops or rubs. LUNGS: Clear to auscultation bilaterally. No wheezes, rales or rhonchi. ABDOMEN: Soft, nontender, nondistended, no organomegaly noted. EXTREMITIES: Show no clubbing, cyanosis or edema. Femoral and distal pulses are intact bilaterally. NEUROLOGIC: No focal deficits. SKIN: Warm, dry and intact. OSTEOPATHIC: No kyphoscoliosis, lordosis or paraspinal tender points. LABORATORY DATA: Hemoglobin 12.4, hematocrit 36.4, platelets 244. Potassium 3.5, BUN 11, creatinine 1.01. DIAGNOSTIC DATA: Electrocardiogram (05/22/2018 at 2125): Sinus tachycardia, mild ST elevations anteriorly consistent with possible pericarditis versus early repolarization. IMPRESSION: 1. IV drug abuse with daily use of Dilaudid. 2. Attempting to withdraw himself and going through withdrawal over the past 72 hours. 3. Tobacco abuse. RECOMMENDATIONS: 1. Mr. Saldaña is attempting to come off opioids and quit his IV drug habit. 2. It sounds as if he has had some fevers and chills over the past few days, but this appears to be more withdrawal symptoms. 3. He was tachycardic when he came in and this is most likely due to his withdrawal. Since being here, his heart rate has been stabilized and he has had no further fevers. 4. He shows no signs or symptoms of endocarditis at this time. 5. We will start with a transthoracic echocardiogram to further evaluate his overall LV function, as well as evaluate his valves for possible endocarditis. 6. We will obtain a CRP to further help us differentiate if possibility of endocarditis. 7. Blood cultures so far have been negative and if they become positive, then we will definitely do a transesophageal echocardiogram. 8. At this time, as he shows no signs or symptoms of endocarditis, I would hold off on transesophageal echocardiogram until further evaluation can be done. 9. I spoke to him for greater than 3 minutes about tobacco cessation. Thank you for allowing me to see Neo Saldaña. If there are any questions, please do not hesitate to call. Rory Mcclellan, DO VGP/te , 02:02 PM , 02:11 PM
[2018-05-24] MEDS: Vancomycin Inj 1,500 MG in Sodium Chlor 0.9% Inj 500 ML IV.SIG SCH ×2 (00:06→13:06)
[2018-05-24] MEDS: Piperacil/Tazo 4.5 GM Premix 4.5 GM/100 ML BAG IV.SIG SCH ×4 (02:47→20:55)
[2018-05-24 08:02] LABS: Baso % (Auto) 0.5 % (0.0-2.0); Eos # (Auto) 0.2 th/mm3 (0.0-0.4); Lymph # (Auto) 2.5 th/mm3 (1.0-4.8); Lymph % (Auto) 25.6 % (9.0-44.0); Mean Corpuscular HGB Conc 34.3 % (32.0-36.0); Mean Corpuscular Hemoglobin 31.4 pg (27.0-34.0); Mean Corpuscular Volume 91.5 fL (80.0-100.0); Mean Platelet Volume 7.7 fL (7.0-11.0); Mono # (Auto) 1.2 th/mm3 (0.0-0.9); Mono % (Auto) 11.8 % (0.0-8.0); Neut % (Auto) 60.1 % (16.0-70.0); Platelet Count 289 th/mm3 (150-450); Red Blood Count 4.15 mil/mm3 (4.50-5.90); Red Cell Distribution Width 13.7 % (11.6-17.2); White Blood Count 9.9 th/mm3 (4.0-11.0)
--- NOTE | 2018-05-24 11:33 | ECHRPT ---
Indication: POSS SEPSIS, ENDOCARDITIS CONCLUSIONS Normal left ventricular size. Wall thickness is normal. The left ventricular systolic function is normal with an estimated ejection fraction in the range of 60-65%. No regional wall motion abnormalities are present. There is trace tricuspid valve regurgitation. BP: / HR: Rhythm: MEASUREMENTS (Male / Female) Normal Values Technical Quality: 2D ECHO LV Diastolic Diameter PLAX 4.7 cm 4.2 - 5.9 / 3.9 - 5.3 cm LV Systolic Diameter PLAX 3.4 cm IVS Diastolic Thickness 1.1 cm 0.6 - 1.0 / 0.6 - 0.9 cm LVPW Diastolic Thickness 1.1 cm 0.6 - 1.0 / 0.6 - 0.9 cm LV Relative Wall Thickness 0.5 RV Internal Dim ED PLAX 2.7 cm LVOT Diameter 2.4 cm Aortic Root Diameter 3.0 cm LA Systolic Diameter LX 3.8 cm 3.0 - 4.0 / 2.7 - 3.8 cm M-MODE AV Cusp Separation MM 2.1 cm DOPPLER AV Peak Velocity 121.0 cm/s AV Peak Gradient 5.9 mmHg AV Mean Gradient 4.0 mmHg AV Velocity Time Integral 21.8 cm LVOT Peak Velocity 106.0 cm/s LVOT Peak Gradient 4.5 mmHg LVOT Velocity Time Integral 19.1 cm AV Area Cont Eq vti 4.0 cm AV Area Cont Eq pk 4.0 cm Mitral E Point Velocity 119.0 cm/s Mitral A Point Velocity 77.5 cm/s Mitral E to A Ratio 1.5 TR Peak Velocity 201.0 cm/s TR Peak Gradient 16.2 mmHg Right Atrial Pressure 10.0 mmHg Pulmonary Artery Systolic Pressu 26.2 mmHg Right Ventricular Systolic Press 26.2 mmHg PV Peak Velocity 93.2 cm/s PV Peak Gradient 3.5 mmHg FINDINGS LEFT VENTRICLE Normal left ventricular size. Wall thickness is normal. The left ventricular systolic function is normal with an estimated ejection fraction in the range of 60-65%. No regional wall motion abnormalities are present. RIGHT VENTRICLE Normal right ventricular size and systolic function. LEFT ATRIUM The left atrial size is normal. RIGHT ATRIUM The right atrial size is normal. ATRIAL SEPTUM No atrial level shunt is demonstrated by color flow Doppler interrogation. AORTA The aortic root and proximal ascending aorta are normal in size on limited imaging. MITRAL VALVE Trace mitral valve regurgitation. AORTIC VALVE Trileaflet aortic valve. No aortic valve stenosis or regurgitation. TRICUSPID VALVE There is trace tricuspid valve regurgitation. PULMONARY VALVE Trivial pulmonary valve regurgitation. VESSELS The inferior vena cava is normal in size. PERICARDIUM No pericardial effusion. Sagar Gonzalez MD (Electronically Signed) Final Date:24 May 2018 11:32
--- NOTE | 2018-05-24 12:05 | P.PNFP ---
Subjective Interval history: Patient seen and examined today. Reports nausea, one episode of vomiting, occasional diarrhea, anxiety. He states this is a similar feeling as he withdrew. Denies chest pain, shortness of breath, lightheadedness, dizziness, confusion, suicidal or homicidal ideation, AV hallucinations. Discussed patient's negative HIV test. Discussed positive hepatitis C test. Patient expressed understanding to follow-up with an outpatient GI for further classification and potential treatment. No other complaints today. <Panda Foster - 05/24/18 12:05> Results - Labs Result diagrams: 05/24/18 07:01 05/24/18 13:12 <Anthony Mccabe - 05/24/18 15:24> Abnormal lab results 05/24/18 05/24/18 Range/Units 07:01 13:12 RBC 4.15 L (4.50-5.90) mil/mm3 Hct 38.0 L (39.0-51.0) % [place] % (Auto) 11.8 H (0.0-8.0) % [place] # (Auto) 1.2 H (0.0-0.9) th/mm3 Chloride 113 H (98-107) meq/L Estimated GFR 78 L (>89) mL/min C-Reactive Protein 1.30 H (0.00-0.30) mg/dL Vancomycin Trough 12.4 H (5.0-10.0) mcg/mL Short CBC 05/24/18 Range/Units 07:01 WBC 9.9 (4.0-11.0) th/mm3 Hgb 13.0 (13.0-17.0) gm/dL Hct 38.0 L (39.0-51.0) % Plt Count 289 (150-450) th/mm3 [facility] 05/24/18 13:12 Sodium 142 Potassium 3.5 Chloride 113 H Carbon Dioxide 22.5 BUN 8 Creatinine 1.18 Calcium 9.0 D <Anthony Mccabe - 05/24/18 15:24> Abnormal lab results 05/23/18 05/24/18 Range/Units 10:12 07:01 RBC 4.15 L (4.50-5.90) mil/mm3 Hct 38.0 L (39.0-51.0) % [place] % (Auto) 11.8 H (0.0-8.0) % [place] # (Auto) 1.2 H (0.0-0.9) th/mm3 Hep C IgG Ab Reactive H (Nonreactive) Short CBC 05/24/18 Range/Units 07:01 WBC 9.9 (4.0-11.0) th/mm3 Hgb 13.0 (13.0-17.0) gm/dL Hct 38.0 L (39.0-51.0) % Plt Count 289 (150-450) th/mm3 <Panda Foster - 05/24/18 12:05> Physical Exam Vital signs: Vital Signs 05/23/18 16:00 05/23/18 20:00 05/24/18 00:00 Temperature 99.1 F 98.9 F 97.8 F Pulse Rate 88 79 82 Respiratory Rate 20 18 18 Blood Pressure 144/71 H 129/69 124/67 Pulse Oximetry 98 98 05/24/18 04:00 05/24/18 07:00 05/24/18 07:43 Temperature 97.4 F L Pulse Rate 82 Respiratory Rate 18 12 12 Blood Pressure 127/63 Pulse Oximetry 127 H 05/24/18 07:48 05/24/18 08:00 05/24/18 11:41 Temperature 98.2 F 99.6 F Pulse Rate 65 61 70 Respiratory Rate 16 20 Blood Pressure 130/70 143/81 H Pulse Oximetry 99 98 Intake & Output 05/23/18 05/24/18 05/24/18 18:59 06:59 18:59 Intake Total 1095 / 1095 815 / 815 100 / 100 Balance 1095 / 1095 815 / 815 100 / 100 Weight 1525 kg 84.1 kg Intake: IV 615 / 615 815 / 815 100 / 100 Zosyn 4.5 GM Premix 4.5 gm In 100 / 100 300 / 300 100 / 100 100 ml @ 200 mls/hr IV.SIG Q6H [facility] Rx#:[id number] Vancomycin Inj 1,500 MG In NS 515 / 515 515 / 515 Inj 500 ML @ 250 mls/hr IV.SIG Q12H [facility] Rx#:[id number] Oral 480 / 480 Other: # Voids 1 3 Date of Last Bowel Movement 05/22/18 05/22/18 05/24/18 # Bowel Movements 1 <Anthony Mccabe - 05/24/18 15:24> Vital Signs 05/23/18 16:00 05/23/18 20:00 05/24/18 00:00 Temperature 99.1 F 98.9 F 97.8 F Pulse Rate 88 79 82 Respiratory Rate 20 18 18 Blood Pressure 144/71 H 129/69 124/67 Pulse Oximetry 98 98 05/24/18 04:00 05/24/18 07:00 05/24/18 07:43 Temperature 97.4 F L Pulse Rate 82 Respiratory Rate 18 12 12 Blood Pressure 127/63 Pulse Oximetry 127 H 05/24/18 07:48 05/24/18 08:00 05/24/18 11:41 Temperature 98.2 F 99.6 F Pulse Rate 65 61 70 Respiratory Rate 16 20 Blood Pressure 130/70 143/81 H Pulse Oximetry 99 98 Intake & Output 05/23/18 05/24/18 05/24/18 18:59 06:59 18:59 Intake Total 1095 / 1095 815 / 815 100 / 100 Balance 1095 / 1095 815 / 815 100 / 100 Weight 1525 kg 84.1 kg Intake: IV 615 / 615 815 / 815 100 / 100 Zosyn 4.5 GM Premix 4.5 gm In 100 / 100 300 / 300 100 / 100 100 ml @ 200 mls/hr IV.SIG Q6H [facility] Rx#:[id number] Vancomycin Inj 1,500 MG In NS 515 / 515 515 / 515 Inj 500 ML @ 250 mls/hr IV.SIG Q12H [facility] Rx#:[id number] Oral 480 / 480 Other: # Voids 1 3 Date of Last Bowel Movement 05/22/18 05/22/18 05/24/18 # Bowel Movements 1 <Panda Foster - 05/24/18 12:05> Narrative: GENERAL: Laying in bed, no acute distress SKIN: Warm and dry. No Osler's nodes, Janeway lesions, splinter hemorrhages. HEAD: Atraumatic. Normocephalic. EYES: Pupils equal and round. No scleral icterus. No injection or drainage. ENT: No nasal bleeding or discharge. Mucous membranes pink and moist. CARDIOVASCULAR: Regular rate and rhythm. No murmurs/gallops/rubs. RESPIRATORY: No accessory muscle use. Clear to auscultation. Breath sounds equal bilaterally. GASTROINTESTINAL: Abdomen soft, non-tender, nondistended. Hepatic and splenic margins not palpable. MUSCULOSKELETAL: Extremities without clubbing, cyanosis, or edema. No obvious deformities. NEUROLOGICAL: Awake and alert. No obvious cranial nerve deficits. Motor grossly within normal limits. Normal speech. PSYCHIATRIC: Appropriate mood and affect; insight and judgment normal. Patient currently denies SI/HI. <Panda Foster - 05/24/18 12:05> Assessment and Plan - Assessment (1) Suspected endocarditis Code(s): R09.89 - Other specified symptoms and signs involving the circulatory and respiratory systems Status: Acute (2) Opioid withdrawal Code(s): F11.23 - Opioid dependence with withdrawal Status: Acute (3) Nicotine addiction Code(s): F17.200 - Nicotine dependence, unspecified, uncomplicated Status: Acute (4) Nutrition, metabolism, and development symptoms Code(s): R63.8 - Other symptoms and signs concerning food and fluid intake Status: Acute <Anthony Mccabe - 05/24/18 15:24> (1) Suspected endocarditis Code(s): R09.89 - Other specified symptoms and signs involving the circulatory and respiratory systems Status: Acute Plan: Patient with chronic and recent IV drug use. Met criteria for sepsis on admission with 2 minor Gaviria criteria, IVDU and fever which requires further evaluation for bacterial endocarditis. -WBC elevated to 19.4 on admission; down to 9.9 today -UDS positive for cocaine and opioids -Follow-up blood cultures, NGTD -Zosyn 4.5 g every 6 hours -Vancomycin 1.5 g every 12 hours with pharmacy consult -Follow-up OSWALD (2) Opioid withdrawal Code(s): F11.23 - Opioid dependence with withdrawal Status: Acute Plan: Chronic IV Dilaudid user, typically uses 4-8 mg/day. -Patient is currently Zaragoza-acted but denies suicidal ideation -Psychiatry recommends inpatient psych following medical stabilization -He may need inpatient rehab -Clonidine 0.1 mg every 6 hours as needed for opioid withdrawal symptoms -Hydroxyzine 50 mg every 6 hours as needed for anxiety related to opioid withdrawal -Per psychiatry Neurontin 300 mg 3 times daily for anxiety -Loperamide 2mg unscheduled for diarrhea -Consider methadone for opioid withdrawal -HIV negative - Hepatitis panel positive for hepatitis C, discussed with patient (3) Nicotine addiction Code(s): F17.200 - Nicotine dependence, unspecified, uncomplicated Status: Acute Plan: Nicotine addiction. -Nicotine patch (4) Nutrition, metabolism, and development symptoms Code(s): R63.8 - Other symptoms and signs concerning food and fluid intake Status: Acute Plan: Diet: Regular Electrolytes: Monitor and replete as needed <Panda Foster - 05/24/18 12:00> - Attending Attestation See the residents documentation for details. I saw and evaluated the patient regarding the kang portions of this evaluation and agree with the residents findings and plans as written. Parts of this note were created using [employer] voice recognition software program. While efforts were made to correct any mistakes made by this software, some mistakes, errors, and omissions may remain in the final note that were not caught when the note was originally created. Plan of care was discussed and agreed upon with the patient as specifically documented in the above note. An opportunity to ask questions with explanation was provided. Patient voiced understanding on all information reviewed and discussed. <Anthony Mccabe - 05/24/18 15:24>
[2018-05-24] MEDS ORDERED: Pharmacy Ordered Lab Info OTHER ONE (12:45)
[2018-05-24] MEDS: Gabapentin 300 MG Capsule PO SCH ×2 (13:06→17:11)
[2018-05-24 13:56] LABS: C-Reactive Protein 1.3 mg/dL (0.00-0.30); Carbon Dioxide 22.5 meq/L (21.0-32.0); Potassium 3.5 meq/L (3.5-5.1)
[2018-05-24 13:58] LABS: Vancomycin,Trough 12.4 mcg/mL (5.0-10.0)
--- NOTE | 2018-05-24 15:59 | P.PNCA ---
Subjective Interval history: No events overnight Sleeping Medications and Allergies Active Medications: Active Medications Acetaminophen (Tylenol) 650 mg PO Q4H PRN PRN Reason: Temp > 100.4 Clonidine HCl (Catapres) 0.1 mg PO Q6H PRN PRN Reason: Opioid Withdrawal Symptoms Last Admin: 05/24/18 13:24 Dose: 0.1 mg Gabapentin (Neurontin) 300 mg PO TID [facility] Last Admin: 05/24/18 13:06 Dose: 300 mg Hydroxyzine HCl (Atarax) 50 mg PO Q6H PRN PRN Reason: ANXIETY AND/OR AGITATION Last Admin: 05/24/18 13:24 Dose: 50 mg Piperacillin/Tazobactam/Dextrose (Zosyn 4.5 Gm Premix) 4.5 gm in 100 mls @ 200 mls/hr IV.SIG Q6H [facility] Last Infusion: 05/24/18 08:29 Dose: Infused Vancomycin HCl 1,500 mg/ (Sodium Chloride) 515 mls @ 250 mls/hr IV.SIG Q12H [facility] Stop: 05/24/18 20:00 Last Infusion: 05/24/18 15:28 Dose: Infused Vancomycin HCl 1,750 mg/ (Sodium Chloride) 517.5 mls @ 250 mls/hr IV.SIG Q12H [facility] Loperamide HCl (Imodium) 2 mg PO UNSCH PRN PRN Reason: DIARRHEA Miscellaneous Information ([facility] Ordered Lab Info) 0 each OTHER ONCE ONE Stop: 05/26/18 12:46 Nicotine (Habitrol 14 Mg Patch.24 Hr) 1 patch T-DERMAL DAILY [facility] Last Admin: 05/24/18 08:00 Dose: 1 patch Nicotine Polacrilex (Nicotine Gum) 4 mg CHEW Q2H PRN PRN Reason: AGITATION Last Admin: 05/23/18 21:21 Dose: 4 mg Ondansetron HCl (Zofran Inj) 4 mg IV.PUSH Q6H PRN PRN Reason: NAUSEA OR VOMITING Patch Removal (Remove Old Patch) 1 each T-DERMAL DAILY [facility] Last Admin: 05/24/18 08:00 Dose: 1 each Pharmacy Profile Note (Vancomycin Consult Pharmacy) 1 each OTHER UNSCH PRN PRN Reason: Pharmacy to dose Sodium Chloride (Ns Flush) 2 ml IV.FLUSH BID [facility] Last Admin: 05/24/18 08:00 Dose: 2 ml Sodium Chloride (Ns Flush) 2 ml IV.FLUSH PRN PRN PRN Reason: FLUSH AFTER USING IV ACCESS Allergies Allergy/AdvReac Type Severity Reaction Status Date / Time No Known Allergies Allergy Verified 05/22/18 22:12 Home Medications Medication Instructions Recorded Confirmed Type No Known Home Medications 05/22/18 05/22/18 History Physical Exam Vital signs: Vital Signs 05/23/18 16:00 05/23/18 20:00 05/24/18 00:00 Temperature 99.1 F 98.9 F 97.8 F Pulse Rate 88 79 82 Respiratory Rate 20 18 18 Blood Pressure 144/71 H 129/69 124/67 Pulse Oximetry 98 98 05/24/18 04:00 05/24/18 07:00 05/24/18 07:43 Temperature 97.4 F L Pulse Rate 82 Respiratory Rate 18 12 12 Blood Pressure 127/63 Pulse Oximetry 127 H 05/24/18 07:48 05/24/18 08:00 05/24/18 11:41 Temperature 98.2 F 99.6 F Pulse Rate 65 61 70 Respiratory Rate 16 20 Blood Pressure 130/70 143/81 H Pulse Oximetry 99 98 Intake & Output 05/23/18 05/24/18 05/24/18 18:59 06:59 18:59 Intake Total 1095 / 1095 815 / 815 615 / 615 Balance 1095 / 1095 815 / 815 615 / 615 Weight 1525 kg 84.1 kg Intake: IV 615 / 615 815 / 815 615 / 615 Zosyn 4.5 GM Premix 4.5 gm In 100 / 100 300 / 300 100 / 100 100 ml @ 200 mls/hr IV.SIG Q6H [facility] Rx#:[id number] Vancomycin Inj 1,500 MG In NS 515 / 515 515 / 515 515 / 515 Inj 500 ML @ 250 mls/hr IV.SIG Q12H [facility] Rx#:[id number] Oral 480 / 480 Other: # Voids 1 3 Date of Last Bowel Movement 05/22/18 05/22/18 05/24/18 # Bowel Movements 1 Narrative: GENERAL: Laying in bed, no acute distress SKIN: Warm and dry. No Osler's nodes, Janeway lesions, splinter hemorrhages. HEAD: Atraumatic. Normocephalic. EYES: Pupils equal and round. No scleral icterus. No injection or drainage. ENT: No nasal bleeding or discharge. Mucous membranes pink and moist. CARDIOVASCULAR: Regular rate and rhythm. No murmurs/gallops/rubs. RESPIRATORY: No accessory muscle use. Clear to auscultation. Breath sounds equal bilaterally. GASTROINTESTINAL: Abdomen soft, non-tender, nondistended. Hepatic and splenic margins not palpable. MUSCULOSKELETAL: Extremities without clubbing, cyanosis, or edema. No obvious deformities. NEUROLOGICAL: Awake and alert. No obvious cranial nerve deficits. Motor grossly within normal limits. Normal speech. PSYCHIATRIC: Appropriate mood and affect; insight and judgment normal. Patient currently denies SI/HI. Results 05/24/18 07:01 05/24/18 13:12 Cardiac Enzymes 05/22/18 05/22/18 05/23/18 Range/Units 19:30 19:30 01:13 AST 15 9 L (15-37) U/L Troponin I Less than 0.02 L (0.02-0.05) ng/mL CBC 05/22/18 05/23/18 05/24/18 Range/Units 19:30 01:13 07:01 WBC 19.4 H 10.5 9.9 (4.0-11.0) th/mm3 RBC 4.45 L 4.00 L 4.15 L (4.50-5.90) mil/mm3 Hgb 13.8 12.4 L 13.0 (13.0-17.0) gm/dL Hct 40.9 36.4 L 38.0 L (39.0-51.0) % Plt Count 308 244 289 (150-450) th/mm3 Neut # (Auto) 16.5 H 6.4 6.0 (1.8-7.7) th/mm3 Lymph # (Auto) 1.6 2.9 2.5 (1.0-4.8) th/mm3 [place] # (Auto) 1.2 H 1.0 H 1.2 H (0.0-0.9) th/mm3 Eos # (Auto) 0.0 0.1 0.2 (0.0-0.4) th/mm3 Baso # (Auto) 0.0 0.0 0.0 (0.0-0.2) th/mm3 Comprehensive Metabolic Panel 05/22/18 05/23/18 05/24/18 Range/Units 19:30 01:13 13:12 Sodium 137 141 142 (136-145) meq/L Potassium 3.5 3.5 3.5 (3.5-5.1) meq/L Chloride 104 108 H 113 H (98-107) meq/L Carbon Dioxide 25.8 27.6 22.5 (21.0-32.0) meq/L BUN 12 11 8 (7-18) mg/dL Creatinine 1.30 1.01 1.18 (0.60-1.30) mg/dL Calcium 9.1 7.9 L D 9.0 D (8.5-10.1) mg/dL AST 15 9 L (15-37) U/L ALT 15 13 (12-78) U/L Alkaline Phosphatase 70 56 (45-117) U/L Total Protein 8.9 H 7.2 D (6.4-8.2) g/dL Albumin 4.1 3.3 L D (3.4-5.0) g/dL Intake and Output 05/24/18 05/24/18 05/24/18 06:59 14:59 22:59 Intake Total 615 / 615 100 / 100 515 / 515 Balance 615 / 615 100 / 100 515 / 515 Intake: IV 615 / 615 100 / 100 515 / 515 Zosyn 4.5 GM Premix 4.5 gm In 100 / 100 100 / 100 100 ml @ 200 mls/hr IV.SIG Q6H [facility] Rx#:[id number] Vancomycin Inj 1,500 MG In NS 515 / 515 515 / 515 Inj 500 ML @ 250 mls/hr IV.SIG Q12H [facility] Rx#:[id number] Other: # Voids 3 Date of Last Bowel Movement 05/24/18 Weight 1525 kg 84.1 kg Patient Weight 05/25/18 06:59 Weight 84.1 kg Assessment and Plan - Assessment (1) Cocaine abuse Code(s): F14.10 - Cocaine abuse, uncomplicated Status: Acute (2) Opioid withdrawal Code(s): F11.23 - Opioid dependence with withdrawal Status: Acute (3) Nicotine addiction Code(s): F17.200 - Nicotine dependence, unspecified, uncomplicated Status: Acute (4) Opioid use disorder, severe, dependence Code(s): F11.20 - Opioid dependence, uncomplicated Status: Acute - Plan 1) IVDA with Dilaudid 2) Cocaine use 3) Withdrawal Most likely cause of tachycardia/fever 4) Blood cultures are negative so far If negative tomorrow, can be discharged to [facility], no further work up 5) CRP elevation non-specific
[2018-05-25] MEDS: Vancomycin Inj 1,750 MG in Sodium Chlor 0.9% Inj 500 ML IV.SIG SCH ×2 (01:17→14:41)
[2018-05-25] MEDS: Piperacil/Tazo 4.5 GM Premix 4.5 GM/100 ML BAG IV.SIG SCH ×2 (03:33→08:27)
[2018-05-25 06:22] LABS: Baso % (Auto) 0.3 % (0.0-2.0); Eos # (Auto) 0.2 th/mm3 (0.0-0.4); Eos % (Auto) 1.7 % (0.0-4.0); Hematocrit 37.5 % (39.0-51.0); Hemoglobin 12.2 gm/dL (13.0-17.0); Lymph # (Auto) 3.5 th/mm3 (1.0-4.8); Lymph % (Auto) 29.4 % (9.0-44.0); Mean Corpuscular HGB Conc 32.7 % (32.0-36.0); Mean Corpuscular Hemoglobin 30.3 pg (27.0-34.0); Mean Corpuscular Volume 92.9 fL (80.0-100.0); Mean Platelet Volume 7.6 fL (7.0-11.0); Mono # (Auto) 1.5 th/mm3 (0.0-0.9); Mono % (Auto) 12.6 % (0.0-8.0); Neut # (Auto) 6.7 th/mm3 (1.8-7.7); Platelet Count 271 th/mm3 (150-450); Red Blood Count 4.04 mil/mm3 (4.50-5.90); Red Cell Distribution Width 13.2 % (11.6-17.2); White Blood Count 11.9 th/mm3 (4.0-11.0)
[2018-05-25] MEDS: Gabapentin 300 MG Capsule PO SCH ×3 (08:28→17:49)
--- NOTE | 2018-05-25 14:39 | P.PNFP ---
Subjective Interval history: No acute events overnight. He still has mild, unchanged symptoms of opiate withdrawal including nausea, diarrhea, and anxiety. He has had the symptoms of withdrawal before. He has no lightheadedness, dizziness, emesis, chest pain, palpitations, shortness of breath. No new complaints today. <Cameron Hamilton Padmini - 05/25/18 14:38> Results - Labs Result diagrams: 05/25/18 05:40 05/24/18 13:12 <Anthony Mccabe - 05/26/18 13:46> Abnormal lab results 05/25/18 Range/Units 05:40 WBC 11.9 H (4.0-11.0) th/mm3 RBC 4.04 L (4.50-5.90) mil/mm3 Hgb 12.2 L (13.0-17.0) gm/dL Hct 37.5 L (39.0-51.0) % [place] % (Auto) 12.6 H (0.0-8.0) % [place] # (Auto) 1.5 H (0.0-0.9) th/mm3 Short CBC 05/25/18 Range/Units 05:40 WBC 11.9 H (4.0-11.0) th/mm3 Hgb 12.2 L (13.0-17.0) gm/dL Hct 37.5 L (39.0-51.0) % Plt Count 271 (150-450) th/mm3 <Pati Hamiltontalia [place] - 05/25/18 14:38> Physical Exam Vital signs: Vital Signs 05/25/18 16:00 05/25/18 20:00 05/26/18 00:00 Temperature 98.2 F 99.7 F H 98.7 F Pulse Rate 61 73 61 Respiratory Rate 22 15 18 Blood Pressure 140/67 139/71 126/68 Pulse Oximetry 100 99 98 05/26/18 04:00 05/26/18 07:57 05/26/18 08:00 Temperature 98.9 F 97.9 F Pulse Rate 61 69 71 Respiratory Rate 17 17 Blood Pressure 140/76 132/63 Pulse Oximetry 99 99 05/26/18 12:00 Temperature 98.8 F Pulse Rate 71 Respiratory Rate 20 Blood Pressure 133/70 Pulse Oximetry 95 Intake & Output 05/25/18 05/26/18 05/26/18 18:59 06:59 18:59 Intake Total 100 / 100 120 / 120 Balance 100 / 100 120 / 120 Weight 84.1 kg Intake: IV 100 / 100 Zosyn 4.5 GM Premix 4.5 gm In 100 / 100 100 ml @ 200 mls/hr IV.SIG Q6H [facility] Rx#:[id number] Oral 120 / 120 Other: Date of Last Bowel Movement 05/24/18 05/25/18 05/25/18 <Anthony Mccabe - 05/26/18 13:46> Vital Signs 05/24/18 16:00 05/24/18 20:00 05/25/18 00:00 Temperature 99.7 F H 98.4 F 98.3 F Pulse Rate 62 79 55 L Respiratory Rate 16 16 20 Blood Pressure 123/64 125/71 124/70 Pulse Oximetry 100 99 98 05/25/18 02:01 05/25/18 04:00 05/25/18 04:30 Temperature 97.9 F Pulse Rate 60 51 L Respiratory Rate 16 20 Blood Pressure 112/55 L Pulse Oximetry 98 05/25/18 07:47 05/25/18 08:00 05/25/18 12:00 Temperature 97.9 F 98.8 F Pulse Rate 54 L 61 Respiratory Rate 16 20 20 Blood Pressure 116/51 L 115/67 Pulse Oximetry 99 99 Intake & Output 05/24/18 05/25/18 05/25/18 18:59 06:59 18:59 Intake Total 715 / 715 717.5 / 717.5 100 / 100 Balance 715 / 715 717.5 / 717.5 100 / 100 Weight 84.1 kg 84.1 kg Intake: IV 715 / 715 717.5 / 717.5 100 / 100 Zosyn 4.5 GM Premix 4.5 gm In 200 / 200 200 / 200 100 / 100 100 ml @ 200 mls/hr IV.SIG Q6H [facility] Rx#:[id number] Vancomycin Inj 1,750 MG In NS 515 / 515 517.5 / 517.5 Inj 500 ML @ 250 mls/hr IV.SIG Q12H [facility] Rx#:[id number] Other: # Voids 1 Date of Last Bowel Movement 05/24/18 05/24/18 05/24/18 <Carlos Hamiltonhenrique [place] - 05/25/18 14:38> Narrative: General: Well-developed, alert, and in no acute distress. Appears stated age HEENT: Atraumatic, non-icteric sclera and no conjunctival injection, moist mucous membranes Neck: Supple, non-tender without masses or lymphadenopathy, trachea midline Cardiac: Regular rate and rhythm without murmurs or gallops Pulmonary: Non-labored breathing. Lungs clear to auscultation bilaterally with good air movement Abdomen: Normal bowel sounds, soft and non-tender without rebound or guarding Extremities: No edema, 2+ pedal pulses, capillary refill less than 2 seconds <MicahjarrettPatitalia [place] - 05/25/18 14:38> Assessment and Plan - Assessment (1) Suspected endocarditis Code(s): R09.89 - Other specified symptoms and signs involving the circulatory and respiratory systems Status: Acute (2) Opioid withdrawal Code(s): F11.23 - Opioid dependence with withdrawal Status: Acute (3) Nicotine addiction Code(s): F17.200 - Nicotine dependence, unspecified, uncomplicated Status: Acute <Anthony Mccabe - 05/26/18 13:46> (1) Suspected endocarditis Code(s): R09.89 - Other specified symptoms and signs involving the circulatory and respiratory systems Status: Acute Plan: Patient with chronic and recent IV drug use. Met criteria for sepsis on admission with 2 minor Gaviria criteria, IVDU and fever which required further evaluation for bacterial endocarditis. Blood cultures have been negative times 3 days. Transthoracic echocardiogram showed no evidence of endocarditis. -Discontinue antibiotics -Spoke with Dr. Mcclellan (cardiology) who confirmed that he is cleared for discharge from a cardiac standpoint (2) Opioid withdrawal Code(s): F11.23 - Opioid dependence with withdrawal Status: Acute Plan: Chronic IV Dilaudid user, typically uses 4-8 mg/day. -Clonidine 0.1 mg every 6 hours as needed for opioid withdrawal symptoms -Hydroxyzine 50 mg every 6 hours as needed for anxiety related to opioid withdrawal -Per psychiatry Neurontin 300 mg 3 times daily for anxiety -Loperamide 2mg unscheduled for diarrhea -Consider methadone for opioid withdrawal -HIV negative - Hepatitis panel positive for hepatitis C, discussed with patient (3) Nicotine addiction Code(s): F17.200 - Nicotine dependence, unspecified, uncomplicated Status: Acute Plan: Nicotine addiction. -Nicotine patch <Cameron Hamilton - 05/25/18 14:39> - Assessment and Plan Fluids: Adequate p.o. intake Electrolytes: monitor and replete as needed Nutrition: Regular diet GI prophylaxis: not indicated VTE prophylaxis: Not indicated Disposition: He is currently Zaragoza acted, however denies suicidal ideation to us. Psychiatry has recommended inpatient psych services after he is medically cleared. They have been reconsulted per their request to reevaluate this. <Cameron Hamilton - 05/25/18 14:38> - Attending Attestation See the residents documentation for details. I saw and evaluated the patient regarding the kang portions of this evaluation and agree with the residents findings and plans as written. Parts of this note were created using [employer] voice recognition software program. While efforts were made to correct any mistakes made by this software, some mistakes, errors, and omissions may remain in the final note that were not caught when the note was originally created. Plan of care was discussed and agreed upon with the patient as specifically documented in the above note. An opportunity to ask questions with explanation was provided. Patient voiced understanding on all information reviewed and discussed. <Anthony Mccabe - 05/26/18 13:46>
--- NOTE | 2018-05-25 15:38 | P.PNCA ---
Subjective Interval history: No events overnight Feeling well Occasional goose bumps, no fever/chills Medications and Allergies Active Medications: Active Medications Acetaminophen (Tylenol) 650 mg PO Q4H PRN PRN Reason: Temp > 100.4 Clonidine HCl (Catapres) 0.1 mg PO Q6H PRN PRN Reason: Opioid Withdrawal Symptoms Last Admin: 05/24/18 13:24 Dose: 0.1 mg Gabapentin (Neurontin) 300 mg PO TID [facility] Last Admin: 05/25/18 12:04 Dose: 300 mg Hydroxyzine HCl (Atarax) 50 mg PO Q6H PRN PRN Reason: ANXIETY AND/OR AGITATION Last Admin: 05/24/18 21:02 Dose: 50 mg Loperamide HCl (Imodium) 2 mg PO UNSCH PRN PRN Reason: DIARRHEA Miscellaneous Information ([facility] Ordered Lab Info) 0 each OTHER ONCE ONE Stop: 05/26/18 12:46 Nicotine (Habitrol 14 Mg Patch.24 Hr) 1 patch T-DERMAL DAILY [facility] Last Admin: 05/25/18 08:28 Dose: 1 patch Nicotine Polacrilex (Nicotine Gum) 4 mg CHEW Q2H PRN PRN Reason: AGITATION Last Admin: 05/24/18 20:55 Dose: 4 mg Ondansetron HCl (Zofran Inj) 4 mg IV.PUSH Q6H PRN PRN Reason: NAUSEA OR VOMITING Patch Removal (Remove Old Patch) 1 each T-DERMAL DAILY [facility] Last Admin: 05/25/18 08:28 Dose: 1 each Sodium Chloride (Ns Flush) 2 ml IV.FLUSH BID [facility] Last Admin: 05/25/18 08:28 Dose: 2 ml Sodium Chloride (Ns Flush) 2 ml IV.FLUSH PRN PRN PRN Reason: FLUSH AFTER USING IV ACCESS Allergies Allergy/AdvReac Type Severity Reaction Status Date / Time No Known Allergies Allergy Verified 05/22/18 22:12 Home Medications Medication Instructions Recorded Confirmed Type No Known Home Medications 05/22/18 05/22/18 History Physical Exam Vital signs: Vital Signs 05/24/18 16:00 05/24/18 20:00 05/25/18 00:00 Temperature 99.7 F H 98.4 F 98.3 F Pulse Rate 62 79 55 L Respiratory Rate 16 16 20 Blood Pressure 123/64 125/71 124/70 Pulse Oximetry 100 99 98 05/25/18 02:01 05/25/18 04:00 05/25/18 04:30 Temperature 97.9 F Pulse Rate 60 51 L Respiratory Rate 16 20 Blood Pressure 112/55 L Pulse Oximetry 98 05/25/18 07:47 05/25/18 08:00 05/25/18 12:00 Temperature 97.9 F 98.8 F Pulse Rate 54 L 61 Respiratory Rate 16 20 20 Blood Pressure 116/51 L 115/67 Pulse Oximetry 99 99 Intake & Output 05/24/18 05/25/18 05/25/18 18:59 06:59 18:59 Intake Total 715 / 715 717.5 / 717.5 100 / 100 Balance 715 / 715 717.5 / 717.5 100 / 100 Weight 84.1 kg 84.1 kg Intake: IV 715 / 715 717.5 / 717.5 100 / 100 Zosyn 4.5 GM Premix 4.5 gm In 200 / 200 200 / 200 100 / 100 100 ml @ 200 mls/hr IV.SIG Q6H [facility] Rx#:[id number] Vancomycin Inj 1,750 MG In NS 515 / 515 517.5 / 517.5 Inj 500 ML @ 250 mls/hr IV.SIG Q12H [facility] Rx#:[id number] Other: # Voids 1 Date of Last Bowel Movement 05/24/18 05/24/18 05/24/18 Narrative: General: Well-developed, alert, and in no acute distress. Appears stated age HEENT: Atraumatic, non-icteric sclera and no conjunctival injection, moist mucous membranes Neck: Supple, non-tender without masses or lymphadenopathy, trachea midline Cardiac: Regular rate and rhythm without murmurs or gallops Pulmonary: Non-labored breathing. Lungs clear to auscultation bilaterally with good air movement Abdomen: Normal bowel sounds, soft and non-tender without rebound or guarding Extremities: No edema, 2+ pedal pulses, capillary refill less than 2 seconds Results 05/25/18 05:40 05/24/18 13:12 CBC 05/24/18 05/25/18 Range/Units 07:01 05:40 WBC 9.9 11.9 H (4.0-11.0) th/mm3 RBC 4.15 L 4.04 L (4.50-5.90) mil/mm3 Hgb 13.0 12.2 L (13.0-17.0) gm/dL Hct 38.0 L 37.5 L (39.0-51.0) % Plt Count 289 271 (150-450) th/mm3 Neut # (Auto) 6.0 6.7 (1.8-7.7) th/mm3 Lymph # (Auto) 2.5 3.5 (1.0-4.8) th/mm3 [place] # (Auto) 1.2 H 1.5 H (0.0-0.9) th/mm3 Eos # (Auto) 0.2 0.2 (0.0-0.4) th/mm3 Baso # (Auto) 0.0 0.0 (0.0-0.2) th/mm3 Comprehensive Metabolic Panel 05/24/18 Range/Units 13:12 Sodium 142 (136-145) meq/L Potassium 3.5 (3.5-5.1) meq/L Chloride 113 H (98-107) meq/L Carbon Dioxide 22.5 (21.0-32.0) meq/L BUN 8 (7-18) mg/dL Creatinine 1.18 (0.60-1.30) mg/dL Calcium 9.0 D (8.5-10.1) mg/dL Intake and Output 05/25/18 05/25/18 05/25/18 06:59 14:59 22:59 Intake Total 617.5 / 617.5 100 / 100 Balance 617.5 / 617.5 100 / 100 Intake: IV 617.5 / 617.5 100 / 100 Zosyn 4.5 GM Premix 4.5 gm In 100 / 100 100 / 100 100 ml @ 200 mls/hr IV.SIG Q6H [facility] Rx#:[id number] Vancomycin Inj 1,750 MG In NS 517.5 / 517.5 Inj 500 ML @ 250 mls/hr IV.SIG Q12H [facility] Rx#:[id number] Other: # Voids 1 Date of Last Bowel Movement 05/24/18 Weight 84.1 kg Assessment and Plan - Assessment (1) Cocaine abuse Code(s): F14.10 - Cocaine abuse, uncomplicated Status: Acute (2) Opioid withdrawal Code(s): F11.23 - Opioid dependence with withdrawal Status: Acute (3) Nicotine addiction Code(s): F17.200 - Nicotine dependence, unspecified, uncomplicated Status: Acute (4) Opioid use disorder, severe, dependence Code(s): F11.20 - Opioid dependence, uncomplicated Status: Acute - Plan 1) IVDA with Dilaudid 2) Cocaine use 3) Withdrawal Most likely cause of tachycardia/fever 4) Blood cultures are negative so far 5) CRP elevation non-specific 6) Cardiovascularly stable for psych evaluation
[2018-05-26] MEDS: Gabapentin 300 MG Capsule PO SCH ×3 (09:26→20:27)
--- NOTE | 2018-05-26 11:46 | P.PNFP ---
Subjective Interval history: Patient seen and examined today. He reports he is over his withdraw symptoms. Denies nausea, vomiting, fever, chills, abdominal pain. He reports some continued anxiety. He denies SI/HI. No other complaints today. <Panda Foster - 05/26/18 14:57> Results - Labs Result diagrams: 05/25/18 05:40 05/24/18 13:12 <Anthony Mccabe - 05/27/18 14:22> Physical Exam Vital signs: Vital Signs 05/26/18 16:10 Temperature 98.6 F Pulse Rate 81 Respiratory Rate 20 Blood Pressure 121/63 Pulse Oximetry 97 Intake & Output 05/26/18 05/27/18 05/27/18 18:59 06:59 18:59 Other: Date of Last Bowel Movement 05/25/18 <Anthony Mccabe - 05/27/18 14:22> Vital Signs 05/25/18 12:00 05/25/18 16:00 05/25/18 20:00 Temperature 98.8 F 98.2 F 99.7 F H Pulse Rate 61 61 73 Respiratory Rate 20 22 15 Blood Pressure 115/67 140/67 139/71 Pulse Oximetry 99 100 99 05/26/18 00:00 05/26/18 04:00 05/26/18 07:57 Temperature 98.7 F 98.9 F 97.9 F Pulse Rate 61 61 69 Respiratory Rate 18 17 17 Blood Pressure 126/68 140/76 132/63 Pulse Oximetry 98 99 99 05/26/18 08:00 Temperature Pulse Rate 71 Respiratory Rate Blood Pressure Pulse Oximetry Intake & Output 05/25/18 05/26/18 05/26/18 18:59 06:59 18:59 Intake Total 100 / 100 120 / 120 Balance 100 / 100 120 / 120 Weight 84.1 kg Intake: IV 100 / 100 Zosyn 4.5 GM Premix 4.5 gm In 100 / 100 100 ml @ 200 mls/hr IV.SIG Q6H [facility] Rx#:[id number] Oral 120 / 120 Other: Date of Last Bowel Movement 05/24/18 05/25/18 05/25/18 <Panda Foster - 05/26/18 11:46> Narrative: GENERAL: Laying in bed, no acute distress SKIN: Warm and dry. No Osler's nodes, [place] lesions, splinter hemorrhages. HEAD: Atraumatic. Normocephalic. EYES: Pupils equal and round, reactive, mydriatic ~7mm. No scleral icterus. No injection or drainage. ENT: No nasal bleeding or discharge. Mucous membranes pink and moist. CARDIOVASCULAR: Regular rate and rhythm. No murmurs/gallops/rubs. RESPIRATORY: No accessory muscle use. Clear to auscultation. Breath sounds equal bilaterally. GASTROINTESTINAL: Abdomen soft, non-tender, nondistended. Hepatic and splenic margins not palpable. MUSCULOSKELETAL: Extremities without clubbing, cyanosis, or edema. No obvious deformities. NEUROLOGICAL: Awake and alert. No obvious cranial nerve deficits. Motor grossly within normal limits. Normal speech. PSYCHIATRIC: Appropriate mood and affect; insight and judgment normal. Patient currently denies SI/HI. <CristianLeif - 05/26/18 11:46> Assessment and Plan - Assessment (1) Suspected endocarditis Code(s): R09.89 - Other specified symptoms and signs involving the circulatory and respiratory systems Status: Acute (2) Opioid withdrawal Code(s): F11.23 - Opioid dependence with withdrawal Status: Acute (3) Nicotine addiction Code(s): F17.200 - Nicotine dependence, unspecified, uncomplicated Status: Acute <Anthony Mccabe - 05/27/18 14:22> (1) Suspected endocarditis Code(s): R09.89 - Other specified symptoms and signs involving the circulatory and respiratory systems Status: Acute Plan: Patient with chronic and recent IV drug use. Met criteria for sepsis on admission with 2 minor Gaviria criteria, IVDU and fever which required further evaluation for bacterial endocarditis. Blood cultures have been negative times 3 days. Transthoracic echocardiogram showed no evidence of endocarditis. -Discontinue antibiotics -Cleared for discharge from cardiac standpoint by Dr. Mcclellan (2) Opioid withdrawal Code(s): F11.23 - Opioid dependence with withdrawal Status: Acute Plan: Chronic IV Dilaudid user, typically uses 4-8 mg/day. -Clonidine 0.1 mg every 6 hours as needed for opioid withdrawal symptoms -Hydroxyzine 50 mg every 6 hours as needed for anxiety related to opioid withdrawal -Per psychiatry Neurontin 300 mg 3 times daily for anxiety -Loperamide 2mg unscheduled for diarrhea -Consider methadone for opioid withdrawal -HIV negative - Hepatitis panel positive for hepatitis C, discussed with patient (3) Nicotine addiction Code(s): F17.200 - Nicotine dependence, unspecified, uncomplicated Status: Acute Plan: Nicotine addiction. -Nicotine patch <Panda Foster A - 05/26/18 14:54> - Assessment and Plan Fluids: Adequate p.o. intake Electrolytes: monitor and replete as needed Nutrition: Regular diet GI prophylaxis: not indicated VTE prophylaxis: Not indicated Disposition: He is currently [place] acted, however denies suicidal ideation to us. Psychiatry has recommended inpatient psych services after he is medically cleared. They have been reconsulted per their request to reevaluate this. <Panda Foster - 05/26/18 14:57> - Attending Attestation See the residents documentation for details. I saw and evaluated the patient regarding the kang portions of this evaluation and agree with the residents findings and plans as written. Parts of this note were created using [employer] voice recognition software program. While efforts were made to correct any mistakes made by this software, some mistakes, errors, and omissions may remain in the final note that were not caught when the note was originally created. Plan of care was discussed and agreed upon with the patient as specifically documented in the above note. An opportunity to ask questions with explanation was provided. Patient voiced understanding on all information reviewed and discussed. <Anthony Mccabe - 05/27/18 14:22>
[2018-05-26] MEDS ORDERED: Pharmacy Ordered Lab Info OTHER ONE (12:45)
--- NOTE | 2018-05-26 14:32 | P.PNPSY ---
Subjective Remarks: Patient was seen today for psychiatric reevaluation. Case was widely discussed with primary medical team also with nursing charge. Elevation the patient is calm, cooperative, pleasant. He is requesting to be discharged. The patient says that he is a drug addict and he does not need to be admitted in psychiatry , "what I need is to go to a rehabilitation program". Patient reports good mood , he says that he has been having conversations with his about continuing sobriety and engaging in a rehab in [place]. The patient denies depression, denies anhedonia, denies anxiety, denies anamaria and psychosis. He denies suicidal and homicidal ideation. He is fully oriented x3. No paranoia, no agitation, no aggressive behavior present. He denies symptoms of withdrawal. Mental Status Examination Appearance: Appropriate Consciousness: Alert Orientation: x4 Motor Activity: Normal gait Speech: Hesitant, Slow Language: Adequate Fund of Knowledge: Adequate Attention and Concentration: Adequate Memory: Impaired Mood: Good Affect: Appropriate Thought Process & Associations: Intact Thought Content: Appropriate Hallucination Type: None Delusion Type: None Suicidal Ideation: No (Denies but is a poor historian) Suicidal Plan: No Suicidal Intention: No Homicidal Ideation: No Homicidal Plan: No Homicidal Intention: No Insight: Fair Judgment: Impulsive Assessment and Plan - Assessment (1) Adjustment disorder with mixed disturbance of emotions and conduct Code(s): F43.25 - Adjustment disorder with mixed disturbance of emotions and conduct Status: Acute (2) Opioid withdrawal Code(s): F11.23 - Opioid dependence with withdrawal Status: Acute (3) Opioid use disorder, severe, dependence Code(s): F11.20 - Opioid dependence, uncomplicated Status: Acute - Plan Plan: The patient does not meet criteria for involuntary psychiatric admission at the moment. Extensive support, motivational psychoeducation provided. No psychotropics recommended. Patient benefits of a comprehensive rehabilitation program. I will lift the Zaragoza act Justification for Continued Inpatient Stay: No admission is indicated
== END 2018-05-26 17:08 | disposition home or self-care (01) ==
LOC: NEDAMB 18:37 → NEDA 21:38 → N05 23:14
PROVIDERS: ADMIT Family Medicine; ATTEND Family Medicine